=== PATIENT | female | born 1955 | race Caucasian/White ===

== ENCOUNTER 2017-09-11 15:19 | Inpatient (IN) ==
[2017-09-11] MEDS ORDERED: 0.9 % SODIUM CHLORIDE 1,000 ML IV ONE (15:37)
--- NOTE | 2017-09-11 15:57 | Emergency Department Note ---
SOB HPI - General Chief Complaint: Shortness of Breath/Dyspnea Stated Complaint: shortness of breath, fever, nausea, vomiting Time Seen by Provider: 09/11/17 15:30 Source: patient Mode of arrival: wheelchair Limitations: no limitations - History of Present Illness 62-year-old female presents with shortness of breath. She had her pain pump replaced on 08/29 and had been doing really well until last week. On Sunday she started to have nausea and vomiting and then today she has worsening shortness of breath. She has been coughing when she takes a deep breath. She denies any significant pain. She feels as though the pain pump is working. She has had 3 pain pumps in the past. This is a Dilaudid pain pump. She has a history of COPD and wears 2 L of oxygen at home. She also has a history of CHF which she has not had hospitalization for. She has not been able to take her medications because of her nausea/vomiting. No chest pain. She is not on any blood thinners. - Related Data Home Medications Medication Instructions Recorded Confirmed Estradiol [Estrace] 1 mg PO DAILY 08/23/17 09/11/17 Furosemide [Lasix] 20 mg PO DAILY 08/23/17 09/11/17 HYDROcodone/ACETAMINOPHEN 1 each PO PRN PRN 08/23/17 09/11/17 [Hydrocodon-Acetaminophn 10-325] Methylphenidate HCl [Quillichew ER] 30 mg PO DAILY 08/23/17 09/11/17 Omeprazole [PriLOSEC] 40 mg PO ACB 08/23/17 09/11/17 Potassium Citrate [Urocit-K] 10 meq PO DAILY 08/23/17 09/11/17 Sertraline [Zoloft] 25 mg PO DAILY 08/29/17 09/11/17 Allergies Allergy/AdvReac Type Severity Reaction Status Date / Time duloxetine [From Cymbalta] Allergy Intermediate Verified 09/11/17 15:23 codeine Allergy Mild Rash Verified 09/11/17 15:23 iodine AdvReac Severe Rash Verified 09/11/17 15:23 Review of Systems All systems ED: reviewed and negative except as stated. Past Medical History - Past Medical History Medical history: Reports: CHF, COPD, other (chronic pain) Psychiatric history: Reports: no psych history [employer] history: Reports: non-contributory Surgical history ED: Reports: other (intrathecal pain pump) Family history: Reports: non-contributory - Social History smoking status: Former smoker Physical Exam Limitations: no limitations General appearance: alert, other (tachypneic) Head: atraumatic Eye: Present: normal appearance. Absent: conjunctival injection Neck: Present: normal inspection, full ROM Chest: Present: normal inspection, symmetric chest wall rise Respiratory: Present: normal lung sounds bilaterally, other (no crackles or wheezes). Absent: wheezes Cardiovascular: Present: tachycardia, normal heart sounds Abdominal: Present: soft, normal bowel sounds, other (post op site looks good. No erythema or drainage). Absent: tenderness Extremities: Present: normal inspection, full ROM. Absent: pedal edema Neurological: Present: alert, oriented X3 Psychiatric: Present: normal affect, normal mood Skin: Present: warm, dry, intact Course Course Narrative: Given Zosyn, Rocephin, and Levaquin. The Rocephin was given after blood cultures were taken. The Zosyn and Levaquin are more tailored to aspiration pneumonia. Vital Signs Temperature 100.2 F H 09/11/17 15:20 Pulse Rate 121 H 09/11/17 15:20 Respiratory Rate 26 H 09/11/17 15:20 Blood Pressure 143/80 09/11/17 15:20 Pulse Oximetry (%) 86 L 09/11/17 15:20 Temperature 97.9 F 09/11/17 19:00 Pulse Rate 84 09/11/17 19:00 Respiratory Rate 16 09/11/17 19:00 Blood Pressure 131/80 09/11/17 19:00 Pulse Oximetry (%) 91 09/11/17 19:00 Shortness of Breath/Dyspnea - Lab Data Lab results reviewed: Yes I reviewed the patient's lab results. Result diagrams: 09/11/17 15:52 09/11/17 15:51 Lab Results 09/11/17 09/11/17 09/11/17 Range/Units 15:51 15:51 15:51 WBC (4.5-11.0) K/mcL RBC (4.00-5.20) M/mcL Hgb (12.0-15.0) g/dL Hct (36.0-48.0) % MCV (80.0-100.0) fL MCH (26.0-34.0) pg MCHC (31.0-36.0) g/dL RDW (11.5-14.5) % Plt Count (140-440) K/mcL MPV (7.4-10.4) fL Total Counted Seg Neutrophils % (38-78) % Band Neutrophils % (0-10) % Lymphocytes % (15-49) % Monocytes % (Manual) (1-12) % Platelet Estimate (NORMAL) RBC Morphology (NORMAL) VBG Lactic Acid 1.9 (0.5-2.2) mmol/L Sodium 134 (133-145) mmol/L Potassium 3.8 (3.3-5.1) mmol/L Chloride 91 L (96-108) mmol/L Carbon Dioxide 24 (22-30) mmol/L Anion Gap 19.0 H (8-16) BUN 7 L (8-23) mg/dl Creatinine 0.5 L (0.6-1.1) mg/dl GFR Calculation 102 Glucose 82 (70-105) mg/dL Calcium 8.7 (8.6-10.4) mg/dl Total Bilirubin 0.9 (0.0-1.0) mg/dL AST 49 H (0-37) U/l ALT 27 (0-40) U/l Alkaline Phosphatase 90 (39-117) U/L NT-Pro-B Natriuret Pep 368.0 H (0-125) pg/ml Total Protein 7.3 (5.9-8.4) gm/dL Albumin 3.1 L (3.2-5.2) gm/dL Globulin 4.2 H (2.2-3.7) gm/dL Albumin/Globulin Ratio 0.7 L (1.0-2.3) Urine Color Urine Appearance Urine pH (5.0-9.0) Ur Specific [place] (1.000-1.035) Urine Protein (NEG) mg/dL Urine Glucose (UA) (NEG) mg/dL Urine Ketones (NEG) mg/dL Urine Occult Blood (<0.03) mg/dL Urine Nitrate (NEG) Urine Bilirubin (NEG) mg/dL Urine Ictotest (NEG) Urine Urobilinogen (NEG) mg/dL Ur Leukocyte Esterase (NEG) /uL Urine RBC (0-1) /hpf Urine WBC (0-4) /hpf Ur Squamous Epith Cells (0-4) /hpf Ur Transition Epith Cell (0-2) /hpf Urine Bacteria (0) /hpf Urine Mucus (0) /hpf Ur Culture Indicated? 09/11/17 09/11/17 Range/Units 15:52 16:39 WBC 18.7 H (4.5-11.0) K/mcL RBC 5.30 H (4.00-5.20) M/mcL Hgb 16.2 H (12.0-15.0) g/dL Hct 49.3 H (36.0-48.0) % MCV 93.0 (80.0-100.0) fL MCH 30.6 (26.0-34.0) pg MCHC 32.9 (31.0-36.0) g/dL RDW 14.0 (11.5-14.5) % Plt Count 513 H (140-440) K/mcL MPV 7.5 (7.4-10.4) fL Total Counted 100 Seg Neutrophils % 93 H (38-78) % Band Neutrophils % 1 (0-10) % Lymphocytes % 3 L (15-49) % Monocytes % (Manual) 3 (1-12) % Platelet Estimate Increased (NORMAL) RBC Morphology Normal (NORMAL) VBG Lactic Acid (0.5-2.2) mmol/L Sodium (133-145) mmol/L Potassium (3.3-5.1) mmol/L Chloride (96-108) mmol/L Carbon Dioxide (22-30) mmol/L Anion Gap (8-16) BUN (8-23) mg/dl Creatinine (0.6-1.1) mg/dl GFR Calculation Glucose (70-105) mg/dL Calcium (8.6-10.4) mg/dl Total Bilirubin (0.0-1.0) mg/dL AST (0-37) U/l ALT (0-40) U/l Alkaline Phosphatase (39-117) U/L NT-Pro-B Natriuret Pep (0-125) pg/ml Total Protein (5.9-8.4) gm/dL Albumin (3.2-5.2) gm/dL Globulin (2.2-3.7) gm/dL Albumin/Globulin Ratio (1.0-2.3) Urine Color Yellow Urine Appearance Hazy Urine pH 6.0 (5.0-9.0) Ur Specific [place] 1.029 (1.000-1.035) Urine Protein 30 A (NEG) mg/dL Urine Glucose (UA) Negative (NEG) mg/dL Urine Ketones 80 A (NEG) mg/dL Urine Occult Blood 0.03 A (<0.03) mg/dL Urine Nitrate Neg (NEG) Urine Bilirubin Neg (NEG) mg/dL Urine Ictotest Neg (NEG) Urine Urobilinogen 4.0 A (NEG) mg/dL Ur Leukocyte Esterase Neg (NEG) /uL Urine RBC 4 H (0-1) /hpf Urine WBC 2 (0-4) /hpf Ur Squamous Epith Cells 12 H (0-4) /hpf Ur Transition Epith Cell < 1 (0-2) /hpf Urine Bacteria 0 (0) /hpf Urine Mucus Many A (0) /hpf Ur Culture Indicated? No - Radiology Data Radiology results reviewed: Yes I reviewed the patient's radiology results. Moderate mixed interstitial/alveolar infiltrates in the right upper and both lower lobes Disposition Pt seen by [employer]/PA only: Yes Clinical Impression: Aspiration pneumonia Disposition: Xfer As Inpt ([facility]) Condition: Fair
[2017-09-11] MEDS ORDERED: ACETAMINOPHEN 325 MG TABLET PO ONE (16:02)
--- NOTE | 2017-09-11 16:17 | XRay Report ---
CLINICAL INFORMATION: Shortness of breath COMPARISON: 04/08/2017 FINDINGS: Heart size, mediastinum and pulmonary vessels are normal. Lungs volumes are elevated suspicion for underlying COPD. There is moderate mixed interstitial/alveolar infiltrates in right upper and both lower lobes. No effusion IMPRESSION: Moderate mixed interstitial/alveolar infiltrates in the right upper and both lower lobes Interpreted and Authenticated by: Simon Rene 09/11/17
[2017-09-11] MEDS ORDERED: cefTRIAXone 1 GM VIAL IV ONE (16:21)
[2017-09-11 16:26] LABS: Mean Corpuscular HGB Conc 32.9 g/dL (31.0-36.0); Mean Corpuscular Hemoglobin 30.6 pg (26.0-34.0); Platelet Count 513 K/mcL (140-440)
[2017-09-11 16:51] LABS: ALT/SGPT 27 U/l (0-40); Albumin 3.1 gm/dL (3.2-5.2); Albumin/Globulin Ratio 0.7 (1.0-2.3); Alkaline Phosphatase 90 U/L (39-117); Blood Urea Nitrogen 7 mg/dl (8-23)
[2017-09-11] MEDS ORDERED: LEVOFLOXACIN 500 MG/100 ML BAG IV ONE (17:37)
[2017-09-11] MEDS ORDERED: PIPERACILLIN SODIUM/TAZOBACTAM 3.375 GM in DEXTROSE 5% IN WATER 50 ML IV ONE (17:37)
[2017-09-11 17:48] LABS: Appearance,Urine HAZY; Bacteria,Urine 0 /hpf (0); Bilirubin,Urine NEG (NEG); Color,Urine YELLOW; Glucose,Urine (UA) NEGATIVE (NEG); Ictotest,Urine NEG (NEG); Leukocyte Esterase,Urine NEG /uL (NEG); Mucus,Urine MANY /hpf (0); Protein,Urine 30 mg/dL (NEG); Specific Gravity,Urine 1.029 (1.000-1.035); Urine Blood 0.03 mg/dL (<0.03); Urine RBC 4 /hpf (0-1); Urine Squamous Epithelial Cell 12 /hpf (0-4); Urine Transitional Epi Cells < 1 /hpf (0-2); Urine WBC 2 /hpf (0-4)
[2017-09-11 18:01] LABS: Band Neutrophils % 1 % (0-10); Lymphocytes % 3 % (15-49); Monocytes % (Manual) 3 % (1-12); Platelet Estimate INCREASED (NORMAL); RBC Morphology NORMAL (NORMAL); Segmented Neutrophils % 93 % (38-78)
[2017-09-11] MEDS ORDERED: ACETAMINOPHEN 325 MG TABLET PO PRN (18:32)
[2017-09-11] MEDS ORDERED: ONDANSETRON 4 MG/2 ML VIAL IV PRN (18:32)
[2017-09-11] MEDS ORDERED: ACETAMINOPHEN 1,000 MG/100 ML BOTTLE IV PRN (18:32)
[2017-09-11] MEDS ORDERED: POTASSIUM CHLORIDE 20 MEQ PACKET PO PRN (18:32)
[2017-09-11] MEDS ORDERED: MAGNESIUM SULFATE 2 GM/50 ML BAG IV PRN (18:32)
[2017-09-11] MEDS ORDERED: IPRATROPIUM/ALBUTEROL 3 ML AMPUL.NEB NEB PRN (18:32)
[2017-09-11] MEDS: LEVOFLOXACIN 750 MG/150 ML BAG IV SCH (18:37)
[2017-09-11] MEDS: PIPERACILLIN SODIUM/TAZOBACTAM 3.375 GM in DEXTROSE 5% IN WATER 50 ML IV SCH (19:56)
[2017-09-11] MEDS: BUDESONIDE 0.5 MG/2 ML AMPUL.NEB NEB SCH (20:59)
[2017-09-11] MEDS ORDERED: SENNOSIDES/DOCUSATE SODIUM 1 TAB TABLET PO SCH (21:00)
[2017-09-11] MEDS ORDERED: 0.9 % SODIUM CHLORIDE 1,000 ML IV SCH (21:30)
--- NOTE | 2017-09-11 21:39 | Internal Med History&Physical ---
Medical - H&P: [facility] Patient information: Note initiated : 09/11/17 at 9:36 pm Service Date, if different from initiated Date: [] Patient: Zari Marroquin a 62 y/o F admitted on 09/11/17 for shortness of breath, fever, nausea, vomiting. Chief Complaint: [] Chief complaint: shortness of breath History of present illness: Ms. Marroquin is a 62 year old F with a history of oxygen dependent COPD who was until recently an active smoker and quit smoking May. Patient has been living alone independently however the last 3 days patient has gotten progressively short of breath with increasing cough and sputum production. Patient also complains of associated fever but denies chest pain or weight loss. She denies sick contacts. Denies changes in medications. With worsening symptoms along with orthopnea she presents to the ER. Initial workup was significant for multifocal pneumonia on chest imaging along with white count 19,000.hospitalist service consulted At the time of evaluation patient is alert and oriented. She is moderately short of breath. On 3 L oxygen. Was able to endorse history as above. She denies shaking chills and drenching sweats, diarrhea or rash photophobia and neck stiffness. She denies arthralgia myalgia. She recently had her pain pump changed. gen were removed yesterday Review of systems A 10 point review of system was performed and is negative except for ones discussed above Medical - H&P: PMH Medical history: Oxygen dependent COPD GERD degenerative joint disease History of congestive heart failure Anxiety disorder Pertinent family history: Noncontributory Social history: or 50 pack history smoking quit in May 2017 Drug use: none Alcohol use: none Medical - H&P: Meds Home Medications Medication Instructions Recorded Confirmed Type Estradiol [Estrace] 1 mg PO DAILY 08/23/17 09/11/17 History Furosemide [Lasix] 20 mg PO DAILY 08/23/17 09/11/17 History HYDROcodone/ACETAMINOPHEN 1 each PO PRN PRN 08/23/17 09/11/17 History [Hydrocodon-Acetaminophn 10-325] Methylphenidate HCl [Quillichew ER] 30 mg PO DAILY 08/23/17 09/11/17 History Omeprazole [PriLOSEC] 40 mg PO ACB 08/23/17 09/11/17 History Potassium Citrate [Urocit-K] 10 meq PO DAILY 08/23/17 09/11/17 History Sertraline [Zoloft] 25 mg PO DAILY 08/29/17 09/11/17 History Allergies Allergy/AdvReac Type Severity Reaction Status Date / Time duloxetine [From Cymbalta] Allergy Intermediate Verified 09/11/17 15:23 codeine Allergy Mild Rash Verified 09/11/17 15:23 iodine AdvReac Mild Rash Verified 09/12/17 11:28 Medical - H&P: Exam - Constitutional Vitals: Temp Pulse Resp BP Pulse Ox 97.9 F 98 H 16 131/80 93 09/11/17 19:00 09/11/17 21:13 09/11/17 21:13 09/11/17 19:00 09/11/17 21:19 General appearance: no acute distress Exam: short of breath minimally anxious Pupils symmetric oral cavity dry No ear discharge Head normocephalic Neck no lymphadenopathy S1 and S2 regular rhythm. ESM grade 1 chest diminished breath sounds bases/crackles/rhonchiexpiratory abdomen soft nontender lower extremity no cyanosis clubbing skin no suspicious lesion Psych alert cooperative Neuro nonfocal Medical - H&P: Reslt - Labs CBC & Chem 7: 09/12/17 04:38 09/12/17 04:38 Labs: Short CBC 09/11/17 Range/Units 15:52 WBC 18.7 H (4.5-11.0) K/mcL Hgb 16.2 H (12.0-15.0) g/dL Hct 49.3 H (36.0-48.0) % Plt Count 513 H (140-440) K/mcL BMP 09/11/17 15:51 Sodium 134 Potassium 3.8 Chloride 91 L Carbon Dioxide 24 BUN 7 L Creatinine 0.5 L Glucose 82 Calcium 8.7 Liver Function 09/11/17 Range/Units 15:51 Total Bilirubin 0.9 (0.0-1.0) mg/dL AST 49 H (0-37) U/l ALT 27 (0-40) U/l Alkaline Phosphatase 90 (39-117) U/L Albumin 3.1 L (3.2-5.2) gm/dL Urine 09/11/17 Range/Units 16:39 Urine Color Yellow Urine Appearance Hazy Urine pH 6.0 (5.0-9.0) Ur Specific [place] 1.029 (1.000-1.035) Urine Protein 30 A (NEG) mg/dL Urine Glucose (UA) Negative (NEG) mg/dL Medical - H&P: A/P (1) Aspiration pneumonia Current visit: Yes Status: Acute * multifocal pneumonia likely aspiration. Continue aspiration precautions/ST eval/dysphagia diet/antibiotic coverage for gram-negative/anaerobes. * Hypoxia-continue supplement oxygen * COPD exacerbation secondary to pneumonia-Continue bronchodilators/immune steroids/oxygen * Anxiety disorder continue sertraline * GERD continue PPI * chronic pain on pain pump * Degenerative joint disease continue acetaminophen/hydrocodone * Full code * Prophylaxis heparin Plan * antibiotic coverage * pre-existing medical condition management as above * Inpatient admitted Medical - H&P: Qual - VTE Deep Vein Thrombosis/Pulmonary Embolism Present on Admission: No
[2017-09-11] MEDS: DOCUSATE SODIUM 100 MG CAPSULE PO SCH (21:46)
[2017-09-11] MEDS: HEPARIN 5,000 UNIT/ML VIAL SQ SCH (21:47)
[2017-09-11] MEDS: 0.9 % SODIUM CHLORIDE 10 ML SYRINGE IV SCH (22:20)
[2017-09-12] MEDS: PIPERACILLIN SODIUM/TAZOBACTAM 3.375 GM in DEXTROSE 5% IN WATER 50 ML IV SCH ×5 (00:21→23:38)
[2017-09-12] MEDS: HYDROcodone/APAP 10/325MG TABLET PO PRN ×4 (00:23→19:45)
[2017-09-12 06:27] LABS: Mean Cell Volume 94.1 fL (80.0-100.0); Mean Corpuscular HGB Conc 32.9 g/dL (31.0-36.0); Platelet Count 447 K/mcL (140-440); RBC 4.56 M/mcL (4.00-5.20); Red Cell Distribution Width 14.2 % (11.5-14.5)
[2017-09-12] MEDS: 0.9 % SODIUM CHLORIDE 10 ML SYRINGE IV SCH ×6 (06:45→20:59)
[2017-09-12 07:02] LABS: ALT/SGPT 20 U/l (0-40); Albumin 2.5 gm/dL (3.2-5.2); Albumin/Globulin Ratio 0.8 (1.0-2.3); Alkaline Phosphatase 78 U/L (39-117); Bilirubin,Direct 0.3 mg/dL (0.0-0.3); Blood Urea Nitrogen 6 mg/dl (8-23); Gamma Glutamyl Transpeptidase 42 U/L (5-36); Uric Acid 2.1 mg/dL (2.5-8.0)
[2017-09-12] MEDS ORDERED: OMEPRAZOLE 20 MG CAPSULE PO SCH (07:30)
[2017-09-12] MEDS ORDERED: POTASSIUM CITRATE 10 MEQ TAB.XL.24H PO SCH (08:00)
[2017-09-12] MEDS: DOCUSATE SODIUM 100 MG CAPSULE PO SCH ×2 (08:15→20:58)
[2017-09-12] MEDS: HEPARIN 5,000 UNIT/ML VIAL SQ SCH ×2 (08:17→20:58)
[2017-09-12 08:37] LABS: Band Neutrophils % 2 % (0-10); Eosinophils % (Manual) 1 % (0-7); Lymphocytes % 17 % (15-49); Monocytes % (Manual) 7 % (1-12); Platelet Estimate INCREASED (NORMAL); RBC Morphology NORMAL (NORMAL); Segmented Neutrophils % 73 % (38-78)
[2017-09-12] MEDS ORDERED: METHYLPHENIDATE HCL 30 MG PO SCH (09:00)
[2017-09-12] MEDS ORDERED: FUROSEMIDE 20 MG TABLET PO SCH (09:00)
[2017-09-12] MEDS ORDERED: SERTRALINE 50 MG TABLET PO SCH (09:00)
[2017-09-12] MEDS: LEVOFLOXACIN 750 MG/150 ML BAG IV SCH (10:01)
--- NOTE | 2017-09-12 10:10 | Internal Med Progress Note ---
Medical - PN: Subj Patient information: Note initiated : 09/12/17 at 10:07 am Service Date, if different from initiated Date: [] Patient: Zari Marroquin a 62 y/o F admitted on 09/11/17 for Shortness of Breath Fever,Nausea, Aspiration Pneum. Chief Complaint: [] Interval history: Ms. Marroquin is a 62 year old F with a history of oxygen dependent COPD who until recently was an active smoker and quit smoking May. Patient has been living alone independently however the last 3 days patient has gotten progressively short of breath with increasing cough and sputum production. Patient also complains of associated fever but denies chest pain or weight loss. She denies sick contacts. Denies changes in medications. With worsening symptoms along with orthopnea she presents to the ER. Initial workup was significant for multifocal pneumonia on chest imaging along with white count 19,000.hospitalist service consulted At the time of evaluation patient is alert and oriented. She is moderately short of breath. On 3 L oxygen. Was able to endorse history as above. She denies shaking chills and drenching sweats, diarrhea or rash photophobia and neck stiffness. She denies arthralgia myalgia. She recently had her pain pump changed. gen were removed yesterday 09/12- patient patient's condition has significantly deteriorated over the last 12 hours. currently on 6 L oxygen mask. Diaphoretic. Labored breathing, tachypnea. Stat ABGs 7.53/33/60 on 5 L oxygen. Lactic acid 1.1. Chest CT pending. white count down from 18.7->16.6. Echocardiogram pending. strep pneumo and mycoplasma negative. On broad antibiotic coverage. Transfer to ICU in light of progressive hypoxic respiratory failure with a large AA gradient and a V/Q mismatch. start positive pressure ventilation.Further treatment will depend on CT findings. Sister at bedside. - Constitutional Vitals: Vital Signs Temp Pulse Resp BP Pulse Ox 98.8 F 84 18 105/62 91 09/12/17 08:00 09/12/17 08:00 09/12/17 08:00 09/12/17 08:00 09/12/17 08:00 Period Temp Pulse Resp BP Sys/Gomes Pulse Ox Last 24 Hr 97.9 F-100.2 F 84-121 13-26 105-143/62-87 86-94 Intake and Output 09/11/17 09/12/17 09/12/17 21:59 05:59 13:59 Intake Total 567 / 567 260 / 260 170 / 170 Output Total 250 / 250 Balance 567 / 567 10 / 10 170 / 170 Weight 136 lb 8 oz Intake & Output: Intake & Output 09/11/17 09/12/17 09/12/17 21:59 05:59 13:59 Intake Total 567 / 567 260 / 260 170 / 170 Output Total 250 / 250 Balance 567 / 567 10 / 10 170 / 170 Weight 136 lb 8 oz Intake: IV 567 / 567 50 / 50 50 / 50 Sodium Chloride 0.9% 1,000 ml @ 442 / 442 Wide Open IV BOLUS ONE Rx#: [id number] Zosyn 3.375 gm In Dextrose 5% 50 / 50 50 / 50 50 / 50 in Water 50 ml @ 100 mls/hr IV Q6H DARIANA Rx#:[id number] Oral 210 / 210 120 / 120 Output: Void Amount 250 / 250 General appearance: moderate distress Exam: anxious diaphoretic and short of breath Labored breathing Tachypneic \nondistended abdomen no lymphedema Medical - PN: Obj Da - Labs CBC & Chem 7: 09/12/17 04:38 09/12/17 04:38 Labs: Abnormal Lab Results 09/12/17 09/12/17 09/11/17 04:38 04:38 18:30 WBC 16.6 H RBC Hgb Hct Plt Count 447 H Seg Neutrophils % Lymphocytes % ESR Chloride Anion Gap BUN 6 L Creatinine 0.5 L Uric Acid 2.1 L Calcium 8.2 L GGT 42 H AST Lactate Dehydrogenase 378 H C-Reactive Protein 4.7 H NT-Pro-B Natriuret Pep Total Protein 5.8 L Albumin 2.5 L Globulin Albumin/Globulin Ratio 0.8 L Urine Protein Urine Ketones Urine Occult Blood Urine Urobilinogen Urine RBC Ur Squamous Epith Cells Urine Mucus 09/11/17 09/11/17 09/11/17 18:30 16:39 15:52 WBC 18.7 H RBC 5.30 H Hgb 16.2 H Hct 49.3 H Plt Count 513 H Seg Neutrophils % 93 H Lymphocytes % 3 L ESR 41 H Chloride Anion Gap BUN Creatinine Uric Acid Calcium GGT AST Lactate Dehydrogenase C-Reactive Protein NT-Pro-B Natriuret Pep Total Protein Albumin Globulin Albumin/Globulin Ratio Urine Protein 30 A Urine Ketones 80 A Urine Occult Blood 0.03 A Urine Urobilinogen 4.0 A Urine RBC 4 H Ur Squamous Epith Cells 12 H Urine Mucus Many A 09/11/17 09/11/17 15:51 15:51 WBC RBC Hgb Hct Plt Count Seg Neutrophils % Lymphocytes % ESR Chloride 91 L Anion Gap 19.0 H BUN 7 L Creatinine 0.5 L Uric Acid Calcium GGT AST 49 H Lactate Dehydrogenase C-Reactive Protein NT-Pro-B Natriuret Pep 368.0 H Total Protein Albumin 3.1 L Globulin 4.2 H Albumin/Globulin Ratio 0.7 L Urine Protein Urine Ketones Urine Occult Blood Urine Urobilinogen Urine RBC Ur Squamous Epith Cells Urine Mucus Meds: Medications Acetaminophen (Tylenol) 650 mg PO Q4-6HP PRN PRN Reason: PAIN/FEVER > 101 Hydrocodone Bitart/Acetaminophen ([place] 10/325mg) 1 tab PO Q4-6HP PRN PRN Reason: Pain Last Admin: 09/12/17 08:23 Dose: 1 tab Albuterol/Ipratropium (Duoneb) 3 ml NEB Q4HP PRN PRN Reason: Shortness Of Breath Last Admin: 09/11/17 20:59 Dose: 3 ml Budesonide (Pulmicort) 0.5 mg NEB Q12 [facility] Last Admin: 09/11/17 20:59 Dose: 0.5 mg Docusate Sodium (Colace) 100 mg PO BID [facility] Last Admin: 09/12/17 08:15 Dose: 100 mg Furosemide (Lasix) 20 mg PO DAILY [facility] Last Admin: 09/12/17 08:15 Dose: 20 mg Heparin Sodium (Porcine) (Heparin) 5,000 unit SQ Q12 [facility] Last Admin: 09/12/17 08:17 Dose: 5,000 unit Levofloxacin (Levaquin) 750 mg in 150 mls @ 100 mls/hr IV Q24H [facility] Last Admin: 09/12/17 10:01 Dose: 100 mls/hr Magnesium Sulfate (Magnesium Sulfate) 2 gm in 50 mls @ 50 mls/hr IV UD PRN PRN Reason: MG = or < 1.7 Acetaminophen (Ofirmev) 1,000 mg in 100 mls @ 200 mls/hr IV Q6HP PRN PRN Reason: PAIN/FEVER > 101 Piperacillin Sod/Tazobactam (Sod 3.375 gm/ Dextrose) 50 mls @ 100 mls/hr IV Q6H [facility] Last Infusion: 09/12/17 06:35 Dose: Infused Sodium Chloride (Sodium Chloride 0.9%) 1,000 mls @ 50 mls/hr IV .Q20H [facility] Last Admin: 09/11/17 21:43 Dose: 50 mls/hr Omeprazole (Prilosec) 40 mg PO ACB [facility] Last Admin: 09/12/17 08:15 Dose: 40 mg Ondansetron HCl (Zofran) 4 mg IV Q4-6HP PRN PRN Reason: Nausea And Vomiting Methylphenidate Hcl [Quillichew Er] 30 Mg 1 dose PO DAILY [facility] Last Admin: 09/12/17 08:17 Dose: Not Given Potassium Chloride (Klor-Con) 40 meq PO DAILYP PRN PRN Reason: K+ < 3.5 Potassium Citrate (Potassium Citrate) 10 meq PO QAMCC [facility] Last Admin: 09/12/17 08:15 Dose: 10 meq Senna/Docusate Sodium (Senna Plus Tablet) 1 tab PO HS [facility] Last Admin: 09/11/17 21:46 Dose: 1 tab Sertraline HCl (Zoloft) 25 mg PO DAILY [facility] Last Admin: 09/12/17 08:15 Dose: 25 mg Sodium Chloride (Saline Flush) 10 ml IV Q8 [facility] Last Admin: 09/12/17 08:18 Dose: Not Given Medical - PN: A/P - Time Spent With Patient Total time spent is greater than 50% in coordination of care (as documented) at patient's floor/unit and/or counseling patient: Greater than 35 minutes (Critical care time) (1) Aspiration pneumonia Status: Acute Assessment and plan: * Acute hypoxic respiratory failure/ ARDS-CT chest pending. Echocardiogram pending. Continue broad antibiotic coverage. Multifocal aspiration pneumonia on initial imaging. ABG 7.53/33/60 on 5 L oxygen. Initiate positive pressure ventilation high flow oxygen. Transfer to ICU. * Multifocal pneumonia likely aspiration. Ccontinue aspiration precautions/ antibody coverage * Sepsis-improving leukocytosis. On antibiotic coverage. Negative cultures to date * COPD exacerbation secondary to pneumonia-Continue bronchodilators/immune steroids/oxygen * Anxiety disorder continue sertraline * GERD continue PPI * chronic pain on pain pump * Degenerative joint disease continue acetaminophen/hydrocodone/pain pump * Full code * Prophylaxis heparin Plan * CT chest/echocardiogram * Transfer to ICU * Close hemodynamic monitoring * pre-existing medical condition management as above Current Visit: Yes Medical - PN: Qual - VTE Deep Vein Thrombosis/Pulmonary Embolism Present on Admission: No
[2017-09-12] MEDS: BUDESONIDE 0.5 MG/2 ML AMPUL.NEB NEB SCH ×2 (10:15→21:17)
[2017-09-12] MEDS ORDERED: IPRATROPIUM/ALBUTEROL 3 ML AMPUL.NEB NEB PRN (11:12)
[2017-09-12] MEDS ORDERED: ACETAMINOPHEN 325 MG TABLET PO PRN (11:12)
[2017-09-12] MEDS ORDERED: ACETAMINOPHEN 1,000 MG/100 ML BOTTLE IV PRN (11:12)
[2017-09-12] MEDS ORDERED: ONDANSETRON 4 MG/2 ML VIAL IV PRN (11:12)
[2017-09-12] MEDS ORDERED: MAGNESIUM SULFATE 2 GM/50 ML BAG IV PRN (11:12)
--- NOTE | 2017-09-12 12:33 | Cat Scan Report ---
CLINICAL INFORMATION: Hypoxia COMPARISON: Chest x-ray from 04/08/2017 and 09/11/2017. TECHNIQUE: 0.625 mm axial slices were obtained from the lung apices through the bases without intravenous contrast. 2.5 mm Sagittal, coronal and axial reformatted images were processed and reviewed at bone, lung and soft tissue windows. 7 mm axial MIP images were also reconstructed to optimize pulmonary nodule detection.The exam was performed using radiation dose optimization techniques including, but not limited to, automated exposure control, adjustment of the mA and/or kV according to patient size and use of iterative reconstruction technique. FINDINGS: Pulmonary parenchymal windows show extensive groundglass infiltrates diffusely throughout the right lung and, to lesser extent, throughout the left lung with peripheral sparing. There is also mild thickening of the interlobular septi - particularly in the upper lobe regions. In addition, multiple small nodules (10 mm or less) are widely scattered throughout both lungs. There are no effusions. Mediastinal windows show the noncontrasted thoracic aorta to be normal in contour and caliber. The central pulmonary arteries are large with main pulmonary artery artery diameter 3.2 cm. There are a few lymph nodes in the pericarinal and lower right peritracheal region which are borderline enlarged - 11 mm. Esophagus is normal. The heart is normal in size and configuration. There is minor calcification the proximal coronary arteries. Bones and soft tissues of the chest wall are normal. IMPRESSION: 1. Diffuse alveolar (groundglass infiltrates) throughout both lungs with peripheral sparing and thickening of the interlobular septa. In addition, there are scattered small nodules less than 10 mm throughout both lungs. In the acute setting, diffuse alveolar infiltrates can indicate ARDS, opportunistic infection (PCP, fungus, mycoplasma, viral ) pulmonary hemorrhage, hypersensitivity pneumonitis, acute eosinophilic pneumonia or drug toxicity. Multiple small nodules may indicate either granulomas or metastases from an unknown primary carcinoma Interpreted and Authenticated by: Simon Rene 09/12/17
[2017-09-12] MEDS: 0.9 % SODIUM CHLORIDE 1,000 ML IV SCH (13:11)
[2017-09-12] MEDS: POTASSIUM CHLORIDE 20 MEQ PACKET PO PRN (14:44)
[2017-09-12] MEDS: FUROSEMIDE 20 MG/2 ML VIAL IV SCH (16:05)
[2017-09-12] MEDS: SENNOSIDES/DOCUSATE SODIUM 1 TAB TABLET PO SCH (20:58)
[2017-09-13] MEDS: HYDROcodone/APAP 10/325MG TABLET PO PRN ×4 (00:27→22:16)
[2017-09-13 05:31] LABS: Mean Cell Volume 94.6 fL (80.0-100.0); Mean Corpuscular HGB Conc 33.1 g/dL (31.0-36.0); Mean Corpuscular Hemoglobin 31.3 pg (26.0-34.0); Platelet Count 459 K/mcL (140-440); RBC 4.54 M/mcL (4.00-5.20)
[2017-09-13 05:54] LABS: ALT/SGPT 18 U/l (0-40); Albumin 2.6 gm/dL (3.2-5.2); Albumin/Globulin Ratio 0.7 (1.0-2.3); Alkaline Phosphatase 72 U/L (39-117); Bilirubin,Direct 0.3 mg/dL (0.0-0.3); Blood Urea Nitrogen 7 mg/dl (8-23); Gamma Glutamyl Transpeptidase 42 U/L (5-36); Uric Acid 1.7 mg/dL (2.5-8.0)
[2017-09-13] MEDS: PIPERACILLIN SODIUM/TAZOBACTAM 3.375 GM in DEXTROSE 5% IN WATER 50 ML IV SCH ×4 (06:15→23:34)
[2017-09-13] MEDS: 0.9 % SODIUM CHLORIDE 10 ML SYRINGE IV SCH ×3 (06:15→23:37)
[2017-09-13] MEDS: OMEPRAZOLE 20 MG CAPSULE PO SCH (07:01)
[2017-09-13 08:11] LABS: Eosinophils % (Manual) 1 % (0-7); Lymphocytes % 14 % (15-49); Monocytes % (Manual) 3 % (1-12); Platelet Estimate INCREASED (NORMAL); RBC Morphology NORMAL (NORMAL); Segmented Neutrophils % 82 % (38-78)
[2017-09-13] MEDS ORDERED: LEVOFLOXACIN 750 MG/150 ML BAG IV SCH (09:00)
[2017-09-13] MEDS: SERTRALINE 50 MG TABLET PO SCH (09:27)
[2017-09-13] MEDS: DOCUSATE SODIUM 100 MG CAPSULE PO SCH ×2 (09:27→20:56)
[2017-09-13] MEDS: FUROSEMIDE 20 MG TABLET PO SCH ×2 (09:27→10:33)
[2017-09-13] MEDS: BUDESONIDE 0.5 MG/2 ML AMPUL.NEB NEB SCH ×2 (09:28→21:15)
[2017-09-13] MEDS: POTASSIUM CITRATE 10 MEQ TAB.XL.24H PO SCH (09:28)
[2017-09-13] MEDS: HEPARIN 5,000 UNIT/ML VIAL SQ SCH ×2 (09:29→20:56)
[2017-09-13] MEDS: METHYLPHENIDATE HCL 30 MG PO SCH (09:30)
[2017-09-13] MEDS: FUROSEMIDE 20 MG/2 ML VIAL IV SCH ×2 (09:35→15:49)
[2017-09-13] MEDS: 0.9 % SODIUM CHLORIDE 1,000 ML IV SCH (09:45)
--- NOTE | 2017-09-13 16:16 | Internal Med Progress Note ---
Medical - PN: Subj Patient information: Note initiated : 09/13/17 at 4:10 pm Service Date, if different from initiated Date: [] Patient: Zari Marroquin a 62 y/o F admitted on 09/11/17 for Shortness of Breath Fever,Nausea, Aspiration Pneum. Chief Complaint: [] Interval history: Ms. Marroquin is a 62 year old F with a history of oxygen dependent COPD who until recently was an active smoker and quit smoking May. Patient has been living alone independently however the last 3 days patient has gotten progressively short of breath with increasing cough and sputum production. Patient also complains of associated fever but denies chest pain or weight loss. She denies sick contacts. Denies changes in medications. With worsening symptoms along with orthopnea she presents to the ER. Initial workup was significant for multifocal pneumonia on chest imaging along with white count 19,000.hospitalist service consulted At the time of evaluation patient is alert and oriented. She is moderately short of breath. On 3 L oxygen. Was able to endorse history as above. She denies shaking chills and drenching sweats, diarrhea or rash photophobia and neck stiffness. She denies arthralgia myalgia. She recently had her pain pump changed. gen were removed yesterday 09/12- patient patient's condition has significantly deteriorated over the last 12 hours. currently on 6 L oxygen mask. Diaphoretic. Labored breathing, tachypnea. Stat ABGs 7.53/33/60 on 5 L oxygen. Lactic acid 1.1. Chest CT pending. white count down from 18.7->16.6. Echocardiogram pending. strep pneumo and mycoplasma negative. On broad antibiotic coverage. Transfer to ICU in light of progressive hypoxic respiratory failure with a large AA gradient and a V/Q mismatch. start positive pressure ventilation.Further treatment will depend on CT findings. Sister at bedside. 09/13- patient doing remarkably better on noninvasive ventilation. Overnight slept well on BiPAP. White count down from 16.6-16.1. improving respiratory status.on 40% FiO2 BiPAP .B D glucan pending. secondary to worsening noticed start sulfamethoxazole. fungal cultures pending. Question bacterial pneumonia in light of normal pro calcitonin. continue conservative management/empiric antibiotic coverage. - Constitutional Vitals: Vital Signs Temp Pulse Resp BP Pulse Ox 97.8 F 74 20 100/58 88 L 09/13/17 12:00 09/13/17 13:22 09/13/17 13:22 09/13/17 12:00 09/13/17 13:22 Period Temp Pulse Resp BP Sys/Gomes Pulse Ox Last 24 Hr 97.1 F-99.2 F 66-153 16-24 97-124/52-72 88-96 Intake and Output 09/13/17 09/13/17 09/13/17 05:59 13:59 21:59 Intake Total 230 / 230 650 / 650 Output Total 100 / 100 890 / 890 Balance 130 / 130 -240 / -240 Intake & Output: Intake & Output 09/13/17 09/13/17 09/13/17 05:59 13:59 21:59 Intake Total 230 / 230 650 / 650 Output Total 100 / 100 890 / 890 Balance 130 / 130 -240 / -240 Intake: IV 50 / 50 250 / 250 Zosyn 3.375 gm In Dextrose 5% 50 / 50 100 / 100 in Water 50 ml @ 100 mls/hr IV Q6H [facility] Rx#:[id number] Oral 180 / 180 400 / 400 Output: Void Amount 100 / 100 890 / 890 Other: Meal Breakfast Percent of Meal Consumed 15% Feeding Ability Independent General appearance: no acute distress Exam: short of breath On BiPAP Labored breathing Nondistended abdomen No anxiety Medical - PN: Obj Da - Labs CBC & Chem 7: 09/13/17 03:29 09/13/17 03:29 Labs: Abnormal Lab Results 09/13/17 09/13/17 09/12/17 03:29 03:29 04:38 WBC 16.1 H RBC Hgb Hct Plt Count 459 H Seg Neutrophils % 82 H Lymphocytes % 14 L ESR Chloride Anion Gap BUN 7 L 6 L Creatinine 0.5 L 0.5 L Uric Acid 1.7 L 2.1 L Calcium 8.2 L 8.2 L GGT 42 H 42 H AST Lactate Dehydrogenase 432 H 378 H C-Reactive Protein NT-Pro-B Natriuret Pep Total Protein 5.8 L Albumin 2.6 L 2.5 L Globulin Albumin/Globulin Ratio 0.7 L 0.8 L Urine Protein Urine Ketones Urine Occult Blood Urine Urobilinogen Urine RBC Ur Squamous Epith Cells Urine Mucus 04/09/11/17 09/11/17 04:38 18:30 18:30 WBC 16.6 H RBC Hgb Hct Plt Count 447 H Seg Neutrophils % Lymphocytes % ESR 41 H Chloride Anion Gap BUN Creatinine Uric Acid Calcium GGT AST Lactate Dehydrogenase C-Reactive Protein 4.7 H NT-Pro-B Natriuret Pep Total Protein Albumin Globulin Albumin/Globulin Ratio Urine Protein Urine Ketones Urine Occult Blood Urine Urobilinogen Urine RBC Ur Squamous Epith Cells Urine Mucus 09/11/17 09/11/17 09/11/17 16:39 15:52 15:51 WBC 18.7 H RBC 5.30 H Hgb 16.2 H Hct 49.3 H Plt Count 513 H Seg Neutrophils % 93 H Lymphocytes % 3 L ESR Chloride Anion Gap BUN Creatinine Uric Acid Calcium GGT AST Lactate Dehydrogenase C-Reactive Protein NT-Pro-B Natriuret Pep 368.0 H Total Protein Albumin Globulin Albumin/Globulin Ratio Urine Protein 30 A Urine Ketones 80 A Urine Occult Blood 0.03 A Urine Urobilinogen 4.0 A Urine RBC 4 H Ur Squamous Epith Cells 12 H Urine Mucus Many A 09/11/17 15:51 WBC RBC Hgb Hct Plt Count Seg Neutrophils % Lymphocytes % ESR Chloride 91 L Anion Gap 19.0 H BUN 7 L Creatinine 0.5 L Uric Acid Calcium GGT AST 49 H Lactate Dehydrogenase C-Reactive Protein NT-Pro-B Natriuret Pep Total Protein Albumin 3.1 L Globulin 4.2 H Albumin/Globulin Ratio 0.7 L Urine Protein Urine Ketones Urine Occult Blood Urine Urobilinogen Urine RBC Ur Squamous Epith Cells Urine Mucus Meds: Medications Acetaminophen (Tylenol) 650 mg PO Q4-6HP PRN PRN Reason: PAIN/FEVER > 101 Hydrocodone Bitart/Acetaminophen ([place] 10/325mg) 1 tab PO Q4-6HP PRN PRN Reason: Pain Last Admin: 09/13/17 07:01 Dose: 1 tab Albuterol/Ipratropium (Duoneb) 3 ml NEB Q4HP PRN PRN Reason: Shortness Of Breath Last Admin: 09/12/17 21:17 Dose: 3 ml Budesonide (Pulmicort) 0.5 mg NEB Q12 [facility] Last Admin: 09/13/17 09:28 Dose: 0.5 mg Docusate Sodium (Colace) 100 mg PO BID [facility] Last Admin: 09/13/17 09:27 Dose: 100 mg Furosemide (Lasix) 20 mg IV BIDD [facility] Last Admin: 09/13/17 15:49 Dose: 20 mg Heparin Sodium (Porcine) (Heparin) 5,000 unit SQ Q12 [facility] Last Admin: 09/13/17 09:29 Dose: 5,000 unit Levofloxacin (Levaquin) 750 mg in 150 mls @ 100 mls/hr IV Q24H [facility] Last Infusion: 09/13/17 11:26 Dose: Infused Magnesium Sulfate (Magnesium Sulfate) 2 gm in 50 mls @ 50 mls/hr IV UD PRN PRN Reason: MG = or < 1.7 Sodium Chloride (Sodium Chloride 0.9%) 1,000 mls @ 50 mls/hr IV .Q20H [facility] Last Admin: 09/13/17 09:45 Dose: Not Given Acetaminophen (Ofirmev) 1,000 mg in 100 mls @ 200 mls/hr IV Q6HP PRN PRN Reason: PAIN/FEVER > 101 Piperacillin Sod/Tazobactam (Sod 3.375 gm/ Dextrose) 50 mls @ 100 mls/hr IV Q6H [facility] Last Infusion: 09/13/17 12:20 Dose: Infused Omeprazole (Prilosec) 40 mg PO ACB [facility] Last Admin: 09/13/17 07:01 Dose: 40 mg Ondansetron HCl (Zofran) 4 mg IV Q4-6HP PRN PRN Reason: Nausea And Vomiting Methylphenidate Hcl [Quillichew Er] 30 Mg Tab 1 dose PO DAILY [facility] Last Admin: 09/13/17 09:30 Dose: Not Given Potassium Chloride (Klor-Con) 40 meq PO DAILYP PRN PRN Reason: K+ < 3.5 Last Admin: 09/12/17 14:44 Dose: 40 meq Potassium Citrate (Potassium Citrate) 10 meq PO QAMCC [facility] Last Admin: 09/13/17 09:28 Dose: 10 meq Senna/Docusate Sodium (Senna Plus Tablet) 1 tab PO HS [facility] Last Admin: 09/12/17 20:58 Dose: 1 tab Sertraline HCl (Zoloft) 25 mg PO DAILY [facility] Last Admin: 09/13/17 09:27 Dose: 25 mg Sodium Chloride (Saline Flush) 10 ml IV Q8 [facility] Last Admin: 09/13/17 15:49 Dose: 10 ml Medical - PN: A/P - Time Spent With Patient Total time spent is greater than 50% in coordination of care (as documented) at patient's floor/unit and/or counseling patient: Greater than 35 minutes (ccritical care time) (1) Aspiration pneumonia Status: Acute Assessment and plan: * Acute hypoxic respiratory failure-CT chest bilateral infiltrates .cultures pending. Echocardiogram EF normal. Continue broad antibiotic coverage. repeat ABG/chest imaging. Continue noninvasive ventilation. large AA gradient based on ABGs * Multifocal pneumonia likely aspiration. Aspiration precautions, continue antibiotic coverage * Sepsis-improving leukocytosis. white count is 16,000. Negative cultures to date * COPD exacerbation secondary to pneumonia-Continue bronchodilators/steroids/ oxygen * Anxiety disorder continue sertraline * GERD continue PPI * chronic pain on pain pump * Degenerative joint disease continue acetaminophen/hydrocodone/pain pump * Full code * Prophylaxis heparin Plan * continue noninvasive ventilation * continue ICU care * Close hemodynamic monitoring * pre-existing medical condition management as above Current Visit: Yes Medical - PN: Qual - VTE Deep Vein Thrombosis/Pulmonary Embolism Present on Admission: No
[2017-09-13] MEDS: SENNOSIDES/DOCUSATE SODIUM 1 TAB TABLET PO SCH (20:56)
[2017-09-14] MEDS: HYDROcodone/APAP 10/325MG TABLET PO PRN ×4 (03:00→21:06)
[2017-09-14 05:15] LABS: Mean Cell Volume 95.3 fL (80.0-100.0); Mean Corpuscular HGB Conc 31.9 g/dL (31.0-36.0); Mean Corpuscular Hemoglobin 30.4 pg (26.0-34.0); Platelet Count 510 K/mcL (140-440); RBC 4.67 M/mcL (4.00-5.20); Red Cell Distribution Width 14.5 % (11.5-14.5)
[2017-09-14 05:43] LABS: ALT/SGPT 19 U/l (0-40); Albumin 2.8 gm/dL (3.2-5.2); Albumin/Globulin Ratio 0.8 (1.0-2.3); Alkaline Phosphatase 71 U/L (39-117); Bilirubin,Direct 0.2 mg/dL (0.0-0.3); Blood Urea Nitrogen 10 mg/dl (8-23); Gamma Glutamyl Transpeptidase 41 U/L (5-36); Uric Acid 1.8 mg/dL (2.5-8.0)
[2017-09-14] MEDS ORDERED: VANCOMYCIN PER PHARMACY IV SCH ×2 (05:56→10:52)
[2017-09-14] MEDS: 0.9 % SODIUM CHLORIDE 10 ML SYRINGE IV SCH ×3 (05:57→22:48)
[2017-09-14] MEDS: PIPERACILLIN SODIUM/TAZOBACTAM 3.375 GM in DEXTROSE 5% IN WATER 50 ML IV SCH ×4 (05:58→23:55)
[2017-09-14] MEDS: OMEPRAZOLE 20 MG CAPSULE PO SCH (07:22)
[2017-09-14] MEDS: METHYLPHENIDATE HCL 30 MG PO SCH (08:00)
[2017-09-14] MEDS: HEPARIN 5,000 UNIT/ML VIAL SQ SCH ×2 (08:05→21:05)
[2017-09-14] MEDS: FUROSEMIDE 20 MG/2 ML VIAL IV SCH ×2 (08:05→16:28)
[2017-09-14] MEDS: SERTRALINE 50 MG TABLET PO SCH (08:05)
[2017-09-14] MEDS: DOCUSATE SODIUM 100 MG CAPSULE PO SCH ×2 (08:06→21:05)
[2017-09-14] MEDS: POTASSIUM CHLORIDE 20 MEQ PACKET PO PRN (08:06)
[2017-09-14] MEDS: POTASSIUM CITRATE 10 MEQ TAB.XL.24H PO SCH (08:34)
[2017-09-14] MEDS ORDERED: LEVOFLOXACIN 750 MG/150 ML BAG IV SCH (09:00)
[2017-09-14 09:19] LABS: Eosinophils % (Manual) 1 % (0-7); Lymphocytes % 14 % (15-49); Monocytes % (Manual) 5 % (1-12); Platelet Estimate INCREASED (NORMAL); RBC Morphology NORMAL (NORMAL); Segmented Neutrophils % 78 % (38-78)
--- NOTE | 2017-09-14 09:30 | Internal Med Progress Note ---
Medical - PN: Subj Patient information: Note initiated : 09/14/17 at 9:26 am Service Date, if different from initiated Date: [] Patient: Zari Marroquin a 62 y/o F admitted on 09/11/17 for Shortness of Breath Fever,Nausea, Aspiration Pneum. Chief Complaint: [] Interval history: Ms. Marroquin is a 62 year old F with a history of oxygen dependent COPD who until recently was an active smoker and quit smoking May. Patient has been living alone independently however the last 3 days patient has gotten progressively short of breath with increasing cough and sputum production. Patient also complains of associated fever but denies chest pain or weight loss. She denies sick contacts. Denies changes in medications. With worsening symptoms along with orthopnea she presents to the ER. Initial workup was significant for multifocal pneumonia on chest imaging along with white count 19,000.hospitalist service consulted At the time of evaluation patient is alert and oriented. She is moderately short of breath. On 3 L oxygen. Was able to endorse history as above. She denies shaking chills and drenching sweats, diarrhea or rash photophobia and neck stiffness. She denies arthralgia myalgia. She recently had her pain pump changed. gen were removed yesterday 09/12- patient patient's condition has significantly deteriorated over the last 12 hours. currently on 6 L oxygen mask. Diaphoretic. Labored breathing, tachypnea. Stat ABGs 7.53/33/60 on 5 L oxygen. Lactic acid 1.1. Chest CT pending. white count down from 18.7->16.6. Echocardiogram pending. strep pneumo and mycoplasma negative. On broad antibiotic coverage. Transfer to ICU in light of progressive hypoxic respiratory failure with a large AA gradient and a V/Q mismatch. start positive pressure ventilation.Further treatment will depend on CT findings. Sister at bedside. 09/13- patient doing remarkably better on noninvasive ventilation. Overnight slept well on BiPAP. White count down from 16.6-16.1. improving respiratory status.on 40% FiO2 BiPAP .B D glucan pending. secondary to worsening noticed start sulfamethoxazole. fungal cultures pending. Question bacterial pneumonia in light of normal pro calcitonin. continue conservative management/empiric antibiotic coverage. 09/14-patient doing better. Was on BiPAP all night. Currently on 6 L oxygen. Able to talk in full sentences. diffuse groundglass opacities on CT suggestive of ARDS versus opportunistic infection. However clinical improvement noted with existing treatment. transitioning to medical for today. White count down from 18.7-15.1. Continue gentle diuresis. potassium 3.1 on replacement. repeat chest imaging in 24 hours - Constitutional Vitals: Vital Signs Temp Pulse Resp BP Pulse Ox 99.0 F H 80 20 92/54 93 09/14/17 04:00 09/14/17 04:00 09/14/17 04:00 09/14/17 04:00 09/14/17 04:00 Period Temp Pulse Resp BP Sys/Gomes Pulse Ox Last 24 Hr 97.8 F-99.0 F 66-125 16-20 92-107/52-63 88-96 Intake and Output 09/13/17 09/14/17 09/14/17 21:59 05:59 13:59 Intake Total 300 / 300 1130 / 1130 50 / 50 Output Total 200 / 200 50 / 50 Balance 100 / 100 1080 / 1080 50 / 50 Weight 135 lb Intake & Output: Intake & Output 09/13/17 09/14/17 09/14/17 21:59 05:59 13:59 Intake Total 300 / 300 1130 / 1130 50 / 50 Output Total 200 / 200 50 / 50 Balance 100 / 100 1080 / 1080 50 / 50 Weight 135 lb Intake: IV 50 / 50 50 / 50 50 / 50 Zosyn 3.375 gm In Dextrose 5% 50 / 50 50 / 50 50 / 50 in Water 50 ml @ 100 mls/hr IV Q6H [facility] Rx#:[id number] Oral 250 / 250 1080 / 1080 Output: Void Amount 200 / 200 50 / 50 Other: Meal Lunch HS Snack-PB&J Percent of Meal Consumed 0% 75% Feeding Ability Assist with Tray Set Up Stool Size Moderate Small Stool Color Brown Brown Stool Consistency Soft Loose Liquid # Voids 2 2 # Bowel Movements 1 2 Medical - PN: Obj Da - Labs CBC & Chem 7: 09/14/17 03:31 09/14/17 03:31 Labs: Abnormal Lab Results 09/14/17 09/14/17 09/13/17 03:31 03:31 03:29 WBC 15.1 H RBC Hgb Hct Plt Count 510 H Seg Neutrophils % Lymphocytes % 14 L ESR Potassium 3.1 L Chloride 92 L Anion Gap BUN 7 L Creatinine 0.5 L 0.5 L Uric Acid 1.8 L 1.7 L Calcium 8.4 L 8.2 L GGT 41 H 42 H AST Lactate Dehydrogenase 410 H 432 H C-Reactive Protein NT-Pro-B Natriuret Pep Total Protein Albumin 2.8 L 2.6 L Globulin Albumin/Globulin Ratio 0.8 L 0.7 L Urine Protein Urine Ketones Urine Occult Blood Urine Urobilinogen Urine RBC Ur Squamous Epith Cells Urine Mucus 09/13/17 09/12/17 09/12/17 03:29 04:38 04:38 WBC 16.1 H 16.6 H RBC Hgb Hct Plt Count 459 H 447 H Seg Neutrophils % 82 H Lymphocytes % 14 L ESR Potassium Chloride Anion Gap BUN 6 L Creatinine 0.5 L Uric Acid 2.1 L Calcium 8.2 L GGT 42 H AST Lactate Dehydrogenase 378 H C-Reactive Protein NT-Pro-B Natriuret Pep Total Protein 5.8 L Albumin 2.5 L Globulin Albumin/Globulin Ratio 0.8 L Urine Protein Urine Ketones Urine Occult Blood Urine Urobilinogen Urine RBC Ur Squamous Epith Cells Urine Mucus 09/11/17 09/11/17 09/11/17 18:30 18:30 16:39 WBC RBC Hgb Hct Plt Count Seg Neutrophils % Lymphocytes % ESR 41 H Potassium Chloride Anion Gap BUN Creatinine Uric Acid Calcium GGT AST Lactate Dehydrogenase C-Reactive Protein 4.7 H NT-Pro-B Natriuret Pep Total Protein Albumin Globulin Albumin/Globulin Ratio Urine Protein 30 A Urine Ketones 80 A Urine Occult Blood 0.03 A Urine Urobilinogen 4.0 A Urine RBC 4 H Ur Squamous Epith Cells 12 H Urine Mucus Many A 09/11/17 09/11/17 09/11/17 15:52 15:51 15:51 WBC 18.7 H RBC 5.30 H Hgb 16.2 H Hct 49.3 H Plt Count 513 H Seg Neutrophils % 93 H Lymphocytes % 3 L ESR Potassium Chloride 91 L Anion Gap 19.0 H BUN 7 L Creatinine 0.5 L Uric Acid Calcium GGT AST 49 H Lactate Dehydrogenase C-Reactive Protein NT-Pro-B Natriuret Pep 368.0 H Total Protein Albumin 3.1 L Globulin 4.2 H Albumin/Globulin Ratio 0.7 L Urine Protein Urine Ketones Urine Occult Blood Urine Urobilinogen Urine RBC Ur Squamous Epith Cells Urine Mucus Meds: Medications Acetaminophen (Tylenol) 650 mg PO Q4-6HP PRN PRN Reason: PAIN/FEVER > 101 Last Admin: 09/13/17 20:59 Dose: 650 mg Hydrocodone Bitart/Acetaminophen ([place] 10/325mg) 1 tab PO Q4-6HP PRN PRN Reason: Pain Last Admin: 09/14/17 09:14 Dose: 1 tab Albuterol/Ipratropium (Duoneb) 3 ml NEB Q4HP PRN PRN Reason: Shortness Of Breath Last Admin: 09/12/17 21:17 Dose: 3 ml Budesonide (Pulmicort) 0.5 mg NEB Q12 [facility] Last Admin: 09/13/17 21:15 Dose: 0.5 mg Docusate Sodium (Colace) 100 mg PO BID [facility] Last Admin: 09/14/17 08:06 Dose: 100 mg Furosemide (Lasix) 20 mg IV BIDD [facility] Last Admin: 09/14/17 08:05 Dose: 20 mg Heparin Sodium (Porcine) (Heparin) 5,000 unit SQ Q12 [facility] Last Admin: 09/14/17 08:05 Dose: 5,000 unit Magnesium Sulfate (Magnesium Sulfate) 2 gm in 50 mls @ 50 mls/hr IV UD PRN PRN Reason: MG = or < 1.7 Last Admin: 09/14/17 08:02 Dose: 50 mls/hr Acetaminophen (Ofirmev) 1,000 mg in 100 mls @ 200 mls/hr IV Q6HP PRN PRN Reason: PAIN/FEVER > 101 Piperacillin Sod/Tazobactam (Sod 3.375 gm/ Dextrose) 50 mls @ 100 mls/hr IV Q6H [facility] Last Infusion: 09/14/17 06:30 Dose: Infused Levofloxacin (Levaquin) 750 mg in 150 mls @ 100 mls/hr IV Q24H [facility] Last Admin: 09/14/17 08:05 Dose: 100 mls/hr Vancomycin HCl 1,000 mg/ (Sodium Chloride) 250 mls @ 250 mls/hr IV Q12H [facility] Last Admin: 09/14/17 09:15 Dose: 250 mls/hr Omeprazole (Prilosec) 40 mg PO ACB [facility] Last Admin: 09/14/17 07:22 Dose: 40 mg Ondansetron HCl (Zofran) 4 mg IV Q4-6HP PRN PRN Reason: Nausea And Vomiting Methylphenidate Hcl [Quillichew Er] 30 Mg Tab 1 dose PO DAILY [facility] Last Admin: 09/14/17 08:00 Dose: Not Given Potassium Chloride (Klor-Con) 40 meq PO DAILYP PRN PRN Reason: K+ < 3.5 Last Admin: 09/14/17 08:06 Dose: 40 meq Potassium Citrate (Potassium Citrate) 10 meq PO QAMCC [facility] Last Admin: 09/14/17 08:34 Dose: 10 meq Senna/Docusate Sodium (Senna Plus Tablet) 1 tab PO HS [facility] Last Admin: 09/13/17 20:56 Dose: Not Given Sertraline HCl (Zoloft) 25 mg PO DAILY [facility] Last Admin: 09/14/17 08:05 Dose: 25 mg Sodium Chloride (Saline Flush) 10 ml IV Q8 [facility] Last Admin: 09/14/17 05:57 Dose: 10 ml Vancomycin HCl (Vancomycin Per Pharmacy) 1 order IV UD [facility] Medical - PN: A/P - Time Spent With Patient Total time spent is greater than 50% in coordination of care (as documented) at patient's floor/unit and/or counseling patient: 25 - 35 minutes (1) Aspiration pneumonia Status: Acute Assessment and plan: * Acute hypoxic respiratory failure-clinically improving. Currently on 6 L oxygen down from 30% FiO2.CT chest bilateral infiltrates .cultures pending. Echocardiogram EF normal. Continue broad antibiotic coverage. repeat ABG/ chest imaging. Continue noninvasive ventilation. large AA gradient based on ABGs * Multifocal pneumonia likely aspiration. Aspiration precautions, continue antibiotic coverage * Sepsis-improving leukocytosis. white count is 16,000. Negative cultures to date * COPD exacerbation secondary to pneumonia-Continue bronchodilators/steroids/ oxygen * Anxiety disorder continue sertraline * GERD continue PPI * chronic pain on pain pump * Degenerative joint disease continue acetaminophen/hydrocodone/pain pump * Full code * Prophylaxis heparin Plan * Transfer to medical floor * continue intermittent noninvasive ventilation to maintain oxygenation * Continue gentle diuresis * aggressive pulmonary toilet * replace potassium * Recheck chest imaging 24 hours Current Visit: Yes Medical - PN: Qual - VTE Deep Vein Thrombosis/Pulmonary Embolism Present on Admission: No
[2017-09-14] MEDS ORDERED: VANCOMYCIN 1,000 MG in 0.9 % SODIUM CHLORIDE 250 ML IV SCH (10:00)
[2017-09-14] MEDS: BUDESONIDE 0.5 MG/2 ML AMPUL.NEB NEB SCH ×2 (10:24→20:40)
[2017-09-14] MEDS ORDERED: ACETAMINOPHEN 1,000 MG/100 ML BOTTLE IV PRN (10:52)
[2017-09-14] MEDS ORDERED: POTASSIUM CHLORIDE 20 MEQ PACKET PO PRN (10:52)
[2017-09-14] MEDS ORDERED: ONDANSETRON 4 MG/2 ML VIAL IV PRN (10:52)
[2017-09-14] MEDS ORDERED: MAGNESIUM SULFATE 2 GM/50 ML BAG IV PRN (10:52)
[2017-09-14] MEDS: ACETAMINOPHEN 325 MG TABLET PO PRN (18:00)
[2017-09-14] MEDS: SENNOSIDES/DOCUSATE SODIUM 1 TAB TABLET PO SCH (21:05)
[2017-09-14] MEDS: VANCOMYCIN 1,000 MG in 0.9 % SODIUM CHLORIDE 250 ML IV SCH (22:48)
[2017-09-15] MEDS: HYDROcodone/APAP 10/325MG TABLET PO PRN ×4 (01:00→22:00)
[2017-09-15 05:45] LABS: Mean Cell Volume 93.8 fL (80.0-100.0); Mean Corpuscular HGB Conc 32.6 g/dL (31.0-36.0); Mean Corpuscular Hemoglobin 30.6 pg (26.0-34.0); Platelet Count 540 K/mcL (140-440); RBC 4.39 M/mcL (4.00-5.20)
[2017-09-15] MEDS: PIPERACILLIN SODIUM/TAZOBACTAM 3.375 GM in DEXTROSE 5% IN WATER 50 ML IV SCH ×4 (05:53→23:53)
[2017-09-15] MEDS: 0.9 % SODIUM CHLORIDE 10 ML SYRINGE IV SCH ×4 (05:53→21:52)
[2017-09-15 05:55] LABS: ALT/SGPT 17 U/l (0-40); Albumin 2.6 gm/dL (3.2-5.2); Albumin/Globulin Ratio 0.8 (1.0-2.3); Alkaline Phosphatase 63 U/L (39-117); Bilirubin,Direct < 0.2 mg/dL (0.0-0.3); Blood Urea Nitrogen 6 mg/dl (8-23); Gamma Glutamyl Transpeptidase 37 U/L (5-36); Uric Acid 1.6 mg/dL (2.5-8.0)
[2017-09-15] MEDS: OMEPRAZOLE 20 MG CAPSULE PO SCH (07:44)
[2017-09-15 08:43] LABS: Lymphocytes % 15 % (15-49); Monocytes % (Manual) 9 % (1-12); Platelet Estimate INCREASED (NORMAL); RBC Morphology NORMAL (NORMAL); Segmented Neutrophils % 76 % (38-78)
[2017-09-15] MEDS: DOCUSATE SODIUM 100 MG CAPSULE PO SCH ×3 (09:29→22:13)
[2017-09-15] MEDS: POTASSIUM CITRATE 10 MEQ TAB.XL.24H PO SCH (09:31)
[2017-09-15] MEDS: SERTRALINE 50 MG TABLET PO SCH (09:31)
[2017-09-15] MEDS: LEVOFLOXACIN 750 MG/150 ML BAG IV SCH (09:32)
[2017-09-15] MEDS: HEPARIN 5,000 UNIT/ML VIAL SQ SCH ×2 (09:39→21:51)
[2017-09-15] MEDS: BUDESONIDE 0.5 MG/2 ML AMPUL.NEB NEB SCH ×2 (09:46→20:48)
[2017-09-15] MEDS: IPRATROPIUM/ALBUTEROL 3 ML AMPUL.NEB NEB PRN ×2 (09:46→20:49)
[2017-09-15] MEDS: FUROSEMIDE 20 MG/2 ML VIAL IV SCH ×2 (11:12→16:06)
[2017-09-15] MEDS: VANCOMYCIN 1,000 MG in 0.9 % SODIUM CHLORIDE 250 ML IV SCH (11:12)
[2017-09-15] MEDS: ACETAMINOPHEN 325 MG TABLET PO PRN (12:34)
[2017-09-15] MEDS: POTASSIUM CHLORIDE 20 MEQ PACKET PO SCH ×2 (14:08→17:36)
--- NOTE | 2017-09-15 14:33 | Internal Med Progress Note ---
Medical - PN: Subj Patient information: Note initiated : 09/15/17 at 2:31 pm Service Date, if different from initiated Date: [] Patient: Zari Marroquin a 62 y/o F admitted on 09/11/17 for Shortness of Breath Fever,Nausea, Aspiration Pneum. Chief Complaint: f/u PNA Interval history: 09/11 Ms. Marroquin is a 62 year old F with a history of oxygen dependent COPD who until recently was an active smoker and quit smoking May. Patient has been living alone independently however the last 3 days patient has gotten progressively short of breath with increasing cough and sputum production. Patient also complains of associated fever but denies chest pain or weight loss. She denies sick contacts. Denies changes in medications. With worsening symptoms along with orthopnea she presents to the ER. Initial workup was significant for multifocal pneumonia on chest imaging along with white count 19,000.hospitalist service consulted At the time of evaluation patient is alert and oriented. She is moderately short of breath. On 3 L oxygen. Was able to endorse history as above. She denies shaking chills and drenching sweats, diarrhea or rash photophobia and neck stiffness. She denies arthralgia myalgia. She recently had her pain pump changed. gen were removed yesterday 09/12- patient patient's condition has significantly deteriorated over the last 12 hours. currently on 6 L oxygen mask. Diaphoretic. Labored breathing, tachypnea. Stat ABGs 7.53/33/60 on 5 L oxygen. Lactic acid 1.1. Chest CT pending. white count down from 18.7->16.6. Echocardiogram pending. strep pneumo and mycoplasma negative. On broad antibiotic coverage. Transfer to ICU in light of progressive hypoxic respiratory failure with a large AA gradient and a V/Q mismatch. start positive pressure ventilation.Further treatment will depend on CT findings. Sister at bedside. 09/13- patient doing remarkably better on noninvasive ventilation. Overnight slept well on BiPAP. White count down from 16.6-16.1. improving respiratory status.on 40% FiO2 BiPAP .B D glucan pending. secondary to worsening noticed start sulfamethoxazole. fungal cultures pending. Question bacterial pneumonia in light of normal pro calcitonin. continue conservative management/empiric antibiotic coverage. 09/14-patient doing better. Was on BiPAP all night. Currently on 6 L oxygen. Able to talk in full sentences. diffuse groundglass opacities on CT suggestive of ARDS versus opportunistic infection. However clinical improvement noted with existing treatment. transitioning to medical for today. White count down from 18.7-15.1. Continue gentle diuresis. potassium 3.1 on replacement. repeat chest imaging in 24 hours 09/15-Continues to improve. Remains on 6 lpm O2, but speaking in full sentences and respirations are unlabored. Feels tired. WBC continues to decline. - Constitutional Vitals: Vital Signs Temp Pulse Resp BP Pulse Ox 98 F 81 16 104/59 93 09/15/17 11:33 09/15/17 09:46 09/15/17 11:33 09/15/17 11:33 09/15/17 11:33 Period Temp Pulse Resp BP Sys/Gomes Pulse Ox Last 24 Hr 97.3 F-99.2 F 75-82 16-20 90-109/55-68 91-93 Intake and Output 09/15/17 09/15/17 09/15/17 05:59 13:59 21:59 Intake Total 1050 / 1050 1690 / 1690 150 / 150 Output Total 75 / 75 450 / 450 750 / 750 Balance 975 / 975 1240 / 1240 -600 / -600 Gen: In NAD Chest: Clear, unlabored, no wheezes or rales CV: RRR, no edema Abd: Soft, NT Neuro: Alert, Ox3, BRUNER Intake & Output: Intake & Output 09/15/17 09/15/17 09/15/17 05:59 13:59 21:59 Intake Total 1050 / 1050 1690 / 1690 150 / 150 Output Total 75 / 75 450 / 450 750 / 750 Balance 975 / 975 1240 / 1240 -600 / -600 Intake: IV 300 / 300 50 / 50 Zosyn 3.375 gm In Dextrose 5% 50 / 50 50 / 50 in Water 50 ml @ 100 mls/hr IV Q6H [facility] Rx#:[id number] Vancomycin 1,000 mg In Sodium 250 / 250 Chloride 0.9% 250 ml @ 250 mls/ hr IV Q12H [facility] Rx#:[id number] Oral 750 / 750 1640 / 1640 150 / 150 Output: Void Amount 75 / 75 450 / 450 750 / 750 Other: Meal Lunch Percent of Meal Consumed 25% Feeding Ability Independent Stool Size Small Moderate Stool Color Brown Brown Stool Consistency Loose Loose # Voids 2 1 1 # Bowel Movements 1 1 Medical - PN: Obj Da - Labs CBC & Chem 7: 09/15/17 04:45 09/15/17 04:45 Labs: Abnormal Lab Results 09/15/17 09/15/17 09/14/17 04:45 04:45 03:31 WBC 12.7 H Plt Count 540 H MPV 7.3 L Seg Neutrophils % Lymphocytes % Sodium 131 L Potassium 3.0 L 3.1 L Chloride 92 L 92 L BUN 6 L Creatinine 0.4 L 0.5 L Glucose 109 H Uric Acid 1.6 L 1.8 L Calcium 8.2 L 8.4 L GGT 37 H 41 H Lactate Dehydrogenase 412 H 410 H Albumin 2.6 L 2.8 L Albumin/Globulin Ratio 0.8 L 0.8 L 09/14/17 09/13/17 09/13/17 03:31 03:29 03:29 WBC 15.1 H 16.1 H Plt Count 510 H 459 H MPV Seg Neutrophils % 82 H Lymphocytes % 14 L 14 L Sodium Potassium Chloride BUN 7 L Creatinine 0.5 L Glucose Uric Acid 1.7 L Calcium 8.2 L GGT 42 H Lactate Dehydrogenase 432 H Albumin 2.6 L Albumin/Globulin Ratio 0.7 L Microbiology 09/11/17 15:51 Blood Culture - Preliminary Blood Meds: Medications Acetaminophen (Tylenol) 650 mg PO Q4-6HP PRN PRN Reason: PAIN/FEVER > 101 Last Admin: 09/15/17 12:34 Dose: 650 mg Hydrocodone Bitart/Acetaminophen (Bracey 10/325mg) 1 tab PO Q4-6HP PRN PRN Reason: Pain Last Admin: 09/15/17 09:31 Dose: 1 tab Albuterol/Ipratropium (Duoneb) 3 ml NEB Q4HP PRN PRN Reason: Shortness Of Breath Last Admin: 09/15/17 09:46 Dose: 3 ml Budesonide (Pulmicort) 0.5 mg NEB Q12 [facility] Last Admin: 09/15/17 09:46 Dose: 0.5 mg Docusate Sodium (Colace) 100 mg PO BID [facility] Last Admin: 09/15/17 09:29 Dose: Not Given Furosemide (Lasix) 20 mg IV BIDD [facility] Last Admin: 09/15/17 11:12 Dose: 20 mg Heparin Sodium (Porcine) (Heparin) 5,000 unit SQ Q12 [facility] Last Admin: 09/15/17 09:39 Dose: 5,000 unit Levofloxacin (Levaquin) 750 mg in 150 mls @ 100 mls/hr IV Q24H [facility] Last Admin: 09/15/17 09:32 Dose: 100 mls/hr Magnesium Sulfate (Magnesium Sulfate) 2 gm in 50 mls @ 50 mls/hr IV UD PRN PRN Reason: MG = or < 1.7 Acetaminophen (Ofirmev) 1,000 mg in 100 mls @ 200 mls/hr IV Q6HP PRN PRN Reason: PAIN/FEVER > 101 Piperacillin Sod/Tazobactam (Sod 3.375 gm/ Dextrose) 50 mls @ 100 mls/hr IV Q6H [facility] Last Admin: 09/15/17 12:30 Dose: 100 mls/hr Vancomycin HCl 1,000 mg/ (Sodium Chloride) 250 mls @ 250 mls/hr IV Q12H [facility] Last Admin: 09/15/17 11:12 Dose: 250 mls/hr Omeprazole (Prilosec) 40 mg PO ACB [facility] Last Admin: 09/15/17 07:44 Dose: 40 mg Ondansetron HCl (Zofran) 4 mg IV Q4-6HP PRN PRN Reason: Nausea And Vomiting Methylphenidate Hcl [Quillichew Er] 30 Mg Tab 1 dose PO DAILY [facility] Last Admin: 09/15/17 09:29 Dose: Not Given Potassium Chloride (Klor-Con) 40 meq PO DAILYP PRN PRN Reason: K+ < 3.5 Last Admin: 09/15/17 09:32 Dose: 40 meq Potassium Chloride (Klor-Con) 40 meq PO Q4H [facility] Stop: 09/15/17 17:46 Last Admin: 09/15/17 14:08 Dose: 40 meq Potassium Citrate (Potassium Citrate) 10 meq PO QAMCC [facility] Last Admin: 09/15/17 09:31 Dose: 10 meq Senna/Docusate Sodium (Senna Plus Tablet) 1 tab PO HS [facility] Last Admin: 09/14/17 21:05 Dose: Not Given Sertraline HCl (Zoloft) 25 mg PO DAILY [facility] Last Admin: 09/15/17 09:31 Dose: 25 mg Sodium Chloride (Saline Flush) 10 ml IV Q8 [facility] Last Admin: 09/15/17 13:40 Dose: 10 ml Vancomycin HCl (Vancomycin Per Pharmacy) 1 order IV UD [facility] - Impressions Echocardiogram from 09/13 The left ventricle is normal in size. The LV sommer are upper normal in thickness. Left ventricular systolic function is normal. The left atrium is borderline dilated. The IVC inspiratory collapse is abnormal at less than 50% Unable to assess RV systolic pressures due to absence of tricuspid regurgitation. Medical - PN: A/P - Time Spent With Patient Total time spent is greater than 50% in coordination of care (as documented) at patient's floor/unit and/or counseling patient: 25 - 35 minutes - Narrative A/P Narrative: 62-year-old female with underlying COPD admitted with dyspnea and multifocal pneumonia. Subsequent with worsening hypoxic respiratory failure requiring BiPAP support. Multifocal pneumonia. CT with diffuse groundglass changes. Is responding to antibiotic therapy, suggest pneumonia with underlying ARDS (vs. atypical or fungal pneumonia). Plan: Given improvement and lack of MRSA on cultures, will stop vancomycin. Continue with Zosyn/Levaquin, follow-up cultures and outstanding studies. Acute hypoxic respiratory failure secondary to above. Remains on 6 L oxygen, though is improved from a few days ago. Plan: Continue supportive care. Sepsis secondary to pneumonia. Improving. Plan: Continue to follow white count, continue with treatment of infection. COPD with exacerbation from pneumonia. No current wheezing today. Plan: Continue with current regimen. Gastroesophageal reflux disease. Plan: Continue PPI. Anxiety disorder. Stable. Plan: Continue sertraline. Chronic pain with pain pump in place and DJD. Plan: Continue pain pump, acetaminophen with hydrocodone. Prophylaxis: Heparin Medical - PN: Qual - VTE Deep Vein Thrombosis/Pulmonary Embolism Present on Admission: No
--- NOTE | 2017-09-15 20:01 | XRay Report ---
CLINICAL INFORMATION: Follow infiltrates COMPARISON: 09/11/2017 FINDINGS: Heart size and mediastinum are unremarkable. Diffuse mixed interstitial/alveolar infiltrates throughout both lungs worse in size the previous examination. There is relative sparing in both apical left upper lobe and lateral base regions. No effusion IMPRESSION: Diffuse mixed interstitial/alveolar infiltrates throughout both lungs - worsening considerably over the past four days. Consider: ARDS, opportunistic infection, pulmonary hemorrhage, hypersensitivity pneumonitis, or drug toxicity Interpreted and Authenticated by: Simon Rene 09/15/17
[2017-09-15] MEDS: SENNOSIDES/DOCUSATE SODIUM 1 TAB TABLET PO SCH ×2 (21:51→22:13)
[2017-09-16] MEDS: HYDROcodone/APAP 10/325MG TABLET PO PRN ×5 (02:05→23:13)
[2017-09-16] MEDS: PIPERACILLIN SODIUM/TAZOBACTAM 3.375 GM in DEXTROSE 5% IN WATER 50 ML IV SCH ×4 (05:40→23:18)
[2017-09-16] MEDS: 0.9 % SODIUM CHLORIDE 10 ML SYRINGE IV SCH ×4 (05:41→21:35)
[2017-09-16 06:07] LABS: Mean Cell Volume 94.2 fL (80.0-100.0); Mean Corpuscular HGB Conc 32.7 g/dL (31.0-36.0); Mean Corpuscular Hemoglobin 30.9 pg (26.0-34.0); Platelet Count 563 K/mcL (140-440); RBC 4.36 M/mcL (4.00-5.20); Red Cell Distribution Width 14.1 % (11.5-14.5)
[2017-09-16 06:32] LABS: ALT/SGPT 21 U/l (0-40); Albumin 2.7 gm/dL (3.2-5.2); Albumin/Globulin Ratio 0.8 (1.0-2.3); Alkaline Phosphatase 75 U/L (39-117); Bilirubin,Direct < 0.2 mg/dL (0.0-0.3); Blood Urea Nitrogen 4 mg/dl (8-23); Gamma Glutamyl Transpeptidase 44 U/L (5-36); Uric Acid 1.4 mg/dL (2.5-8.0)
[2017-09-16] MEDS: OMEPRAZOLE 20 MG CAPSULE PO SCH (07:32)
[2017-09-16 08:32] LABS: Eosinophils % (Manual) 1 % (0-7); Lymphocytes % 8 % (15-49); Monocytes % (Manual) 5 % (1-12); Platelet Estimate INCREASED (NORMAL); RBC Morphology NORMAL (NORMAL); Segmented Neutrophils % 86 % (38-78)
[2017-09-16] MEDS: SERTRALINE 50 MG TABLET PO SCH (09:16)
[2017-09-16] MEDS: HEPARIN 5,000 UNIT/ML VIAL SQ SCH ×2 (09:16→20:46)
[2017-09-16] MEDS: FUROSEMIDE 20 MG/2 ML VIAL IV SCH ×2 (09:16→16:06)
[2017-09-16] MEDS: POTASSIUM CITRATE 10 MEQ TAB.XL.24H PO SCH (09:16)
[2017-09-16] MEDS: DOCUSATE SODIUM 100 MG CAPSULE PO SCH ×2 (09:16→21:34)
[2017-09-16] MEDS ORDERED: VANCOMYCIN PER PHARMACY IV SCH (09:31)
[2017-09-16] MEDS: LEVOFLOXACIN 750 MG/150 ML BAG IV SCH ×2 (09:52→09:53)
[2017-09-16] MEDS ORDERED: VANCOMYCIN 1,500 MG in 0.9 % SODIUM CHLORIDE 500 ML IV ONE (10:00)
[2017-09-16] MEDS: BUDESONIDE 0.5 MG/2 ML AMPUL.NEB NEB SCH ×2 (10:44→20:56)
[2017-09-16] MEDS ORDERED: HYDROmorphone 2 MG/ML VIAL IV PRN ×2 (12:45→13:24)
[2017-09-16] MEDS ORDERED: HYDROmorphone 2 MG/ML VIAL IM ONE (13:23)
--- NOTE | 2017-09-16 19:19 | XRay Report ---
CLINICAL INFORMATION: Follow up diffuse infiltrates. ARDS is suspected clinically COMPARISON: 09/11/2017 and 09/15/2017 plain films FINDINGS: Heart size, mediastinum and pulmonary vessels are normal. Mixed interstitial/alveolar infiltrates diffusely throughout both lungs show general improved aeration particularly in the mid lungs and left base. No effusions. Bones soft tissues normal IMPRESSION: Diffuse mixed interstitial/alveolar infiltrates throughout both lungs showing modest improvement aeration in both mid and left lower lung infiltrate components compared to yesterday's film. Findings supportive of the clinical diagnosis of resolving ARDS. Interpreted and Authenticated by: Simon Rene 09/16/17
--- NOTE | 2017-09-16 20:29 | Internal Med Progress Note ---
Medical - PN: Subj Patient information: Note initiated : 09/16/17 at 8:27 pm Service Date, if different from initiated Date: [] Patient: Zari Marroquin a 62 y/o F admitted on 09/11/17 for Shortness of Breath Fever,Nausea, Aspiration Pneum. Chief Complaint: f/u pneumonia Interval history: 09/11 Ms. Marroquin is a 62 year old F with a history of oxygen dependent COPD who until recently was an active smoker and quit smoking May. Patient has been living alone independently however the last 3 days patient has gotten progressively short of breath with increasing cough and sputum production. Patient also complains of associated fever but denies chest pain or weight loss. She denies sick contacts. Denies changes in medications. With worsening symptoms along with orthopnea she presents to the ER. Initial workup was significant for multifocal pneumonia on chest imaging along with white count 19,000.hospitalist service consulted At the time of evaluation patient is alert and oriented. She is moderately short of breath. On 3 L oxygen. Was able to endorse history as above. She denies shaking chills and drenching sweats, diarrhea or rash photophobia and neck stiffness. She denies arthralgia myalgia. She recently had her pain pump changed. gen were removed yesterday 09/12- patient patient's condition has significantly deteriorated over the last 12 hours. currently on 6 L oxygen mask. Diaphoretic. Labored breathing, tachypnea. Stat ABGs 7.53/33/60 on 5 L oxygen. Lactic acid 1.1. Chest CT pending. white count down from 18.7->16.6. Echocardiogram pending. strep pneumo and mycoplasma negative. On broad antibiotic coverage. Transfer to ICU in light of progressive hypoxic respiratory failure with a large AA gradient and a V/Q mismatch. start positive pressure ventilation.Further treatment will depend on CT findings. Sister at bedside. 09/13- patient doing remarkably better on noninvasive ventilation. Overnight slept well on BiPAP. White count down from 16.6-16.1. improving respiratory status.on 40% FiO2 BiPAP .B D glucan pending. secondary to worsening noticed start sulfamethoxazole. fungal cultures pending. Question bacterial pneumonia in light of normal pro calcitonin. continue conservative management/empiric antibiotic coverage. 09/14-patient doing better. Was on BiPAP all night. Currently on 6 L oxygen. Able to talk in full sentences. diffuse groundglass opacities on CT suggestive of ARDS versus opportunistic infection. However clinical improvement noted with existing treatment. transitioning to medical for today. White count down from 18.7-15.1. Continue gentle diuresis. potassium 3.1 on replacement. repeat chest imaging in 24 hours 09/15-Continues to improve. Remains on 6 lpm O2, but speaking in full sentences and respirations are unlabored. Feels tired. WBC continues to decline. 09/16-white count increased to 18,000 today. Had the onset of severe left scapular pain. Worse with respirations, also worse with movement. Was tender over that area on exam. Radiograph actually with improving infiltrates, no evidence of pneumothorax. Later in the afternoon, symptoms had improved. - Constitutional Vitals: Vital Signs Temp Pulse Resp BP Pulse Ox 98.4 F 83 22 101/64 92 09/16/17 19:21 09/16/17 19:21 09/16/17 19:21 09/16/17 19:21 09/16/17 19:21 Period Temp Pulse Resp BP Sys/Gomes Pulse Ox Last 24 Hr 98.1 F-99.5 F 83-84 16-22 96-115/56-78 91-99 Intake and Output 09/16/17 09/16/17 09/16/17 05:59 13:59 21:59 Intake Total 1518 / 1518 1300 / 1300 770 / 770 Output Total 1605 / 1605 1800 / 1800 200 / 200 Balance -87 / -87 -500 / -500 570 / 570 Intake & Output: Intake & Output 09/16/17 09/16/17 09/16/17 05:59 13:59 21:59 Intake Total 1518 / 1518 1300 / 1300 770 / 770 Output Total 1605 / 1605 1800 / 1800 200 / 200 Balance -87 / -87 -500 / -500 570 / 570 Intake: IV 50 / 50 50 / 50 50 / 50 Zosyn 3.375 gm In Dextrose 5% 50 / 50 50 / 50 50 / 50 in Water 50 ml @ 100 mls/hr IV Q6H [facility] Rx#:[id number] Oral 1468 / 1468 1250 / 1250 720 / 720 Output: Void Amount 1605 / 1605 1800 / 1800 200 / 200 Other: Meal Dinner Percent of Meal Consumed 75% Feeding Ability Independent Stool Size Small Stool Color Brown Green Stool Consistency Loose # Voids 1 1 1 # Bowel Movements 1 Exam: General: Uncomfortable, later in the afternoon more comfortable Chest: Clear without wheezes or rhonchi, respirations mildly labored Cardiovascular: Regular, no edema Abdomen: Soft, nontender Musculoskeletal: Tenderness palpation over the medial distal scapula. No overlying erythema, no swelling. Neuro: Alert, oriented, nonfocal Medical - PN: Obj Da - Labs CBC & Chem 7: 09/16/17 05:05 09/16/17 05:05 Labs: Abnormal Lab Results 09/16/17 09/16/17 09/15/17 05:05 05:05 04:45 WBC 18.5 H Plt Count 563 H MPV 7.3 L Seg Neutrophils % 86 H Lymphocytes % 8 L Sodium 131 L Potassium 3.0 L Chloride 92 L BUN 4 L 6 L Creatinine 0.4 L 0.4 L Glucose 109 H Uric Acid 1.4 L 1.6 L Calcium 8.4 L 8.2 L GGT 44 H 37 H Lactate Dehydrogenase 504 H 412 H Albumin 2.7 L 2.6 L Albumin/Globulin Ratio 0.8 L 0.8 L 09/15/17 09/14/17 09/14/17 04:45 03:31 03:31 WBC 12.7 H 15.1 H Plt Count 540 H 510 H MPV 7.3 L Seg Neutrophils % Lymphocytes % 14 L Sodium Potassium 3.1 L Chloride 92 L BUN Creatinine 0.5 L Glucose Uric Acid 1.8 L Calcium 8.4 L GGT 41 H Lactate Dehydrogenase 410 H Albumin 2.8 L Albumin/Globulin Ratio 0.8 L Meds: Medications Acetaminophen (Tylenol) 650 mg PO Q4-6HP PRN PRN Reason: PAIN/FEVER > 101 Last Admin: 09/15/17 12:34 Dose: 650 mg Hydrocodone Bitart/Acetaminophen ([place] 10/325mg) 1 tab PO Q4-6HP PRN PRN Reason: Pain Last Admin: 09/16/17 19:33 Dose: 1 tab Albuterol/Ipratropium (Duoneb) 3 ml NEB Q4HP PRN PRN Reason: Shortness Of Breath Last Admin: 09/15/17 20:49 Dose: 3 ml Budesonide (Pulmicort) 0.5 mg NEB Q12 [facility] Last Admin: 09/16/17 10:44 Dose: Not Given Docusate Sodium (Colace) 100 mg PO BID [facility] Last Admin: 09/16/17 09:16 Dose: Not Given Furosemide (Lasix) 20 mg IV BIDD [facility] Last Admin: 09/16/17 16:06 Dose: 20 mg Heparin Sodium (Porcine) (Heparin) 5,000 unit SQ Q12 [facility] Last Admin: 09/16/17 09:16 Dose: 5,000 unit Hydromorphone HCl (Dilaudid) 1 mg IV Q2HP PRN PRN Reason: PAIN LEVEL > 6 Last Admin: 09/16/17 17:39 Dose: 1 mg Magnesium Sulfate (Magnesium Sulfate) 2 gm in 50 mls @ 50 mls/hr IV UD PRN PRN Reason: MG = or < 1.7 Acetaminophen (Ofirmev) 1,000 mg in 100 mls @ 200 mls/hr IV Q6HP PRN PRN Reason: PAIN/FEVER > 101 Piperacillin Sod/Tazobactam (Sod 3.375 gm/ Dextrose) 50 mls @ 100 mls/hr IV Q6H [facility] Last Admin: 09/16/17 17:41 Dose: 100 mls/hr Levofloxacin (Levaquin) 750 mg in 150 mls @ 100 mls/hr IV Q24H [facility] Last Admin: 09/16/17 09:53 Dose: 100 mls/hr Vancomycin HCl 1,250 mg/ (Sodium Chloride) 500 mls @ 333.333 mls/hr IV Q12H [facility] Omeprazole (Prilosec) 40 mg PO ACB [facility] Last Admin: 09/16/17 07:32 Dose: 40 mg Ondansetron HCl (Zofran) 4 mg IV Q4-6HP PRN PRN Reason: Nausea And Vomiting Methylphenidate Hcl [Quillichew Er] 30 Mg Tab 1 dose PO DAILY [facility] Last Admin: 09/16/17 09:16 Dose: Not Given Potassium Chloride (Klor-Con) 40 meq PO DAILYP PRN PRN Reason: K+ < 3.5 Last Admin: 09/15/17 09:32 Dose: 40 meq Potassium Citrate (Potassium Citrate) 10 meq PO QAMCC [facility] Last Admin: 09/16/17 09:16 Dose: 10 meq Senna/Docusate Sodium (Senna Plus Tablet) 1 tab PO HS [facility] Last Admin: 09/15/17 22:13 Dose: Not Given Sertraline HCl (Zoloft) 25 mg PO DAILY [facility] Last Admin: 09/16/17 09:16 Dose: 25 mg Sodium Chloride (Saline Flush) 10 ml IV Q8 [facility] Last Admin: 09/16/17 14:19 Dose: 10 ml Vancomycin HCl (Vancomycin Per Pharmacy) 1 order IV UD [facility] - Imaging and cardiology Chest x-ray Status: image reviewed by me Additional comments: Reviewed and discussed with Dr. Rene IMPRESSION: Diffuse mixed interstitial/alveolar infiltrates throughout both lungs showing modest improvement aeration in both mid and left lower lung infiltrate components compared to yesterday's film. Findings supportive of the clinical diagnosis of resolving ARDS. Medical - PN: A/P - Time Spent With Patient Total time spent is greater than 50% in coordination of care (as documented) at patient's floor/unit and/or counseling patient: Greater than 35 minutes - Narrative A/P Narrative: 62-year-old female with underlying COPD admitted with dyspnea and multifocal pneumonia. Subsequent with worsening hypoxic respiratory failure requiring BiPAP support. Multifocal pneumonia. CT with diffuse groundglass changes. Is responding to antibiotic therapy, suggest pneumonia with underlying ARDS (vs. atypical or fungal pneumonia). WBC worsening Sunday, though radiograph improved. Plan: Add back vancomycin, continue with Zosyn/Levaquin, follow-up cultures and outstanding studies. Right chest pain. Unclear etiology. Was tender with palpation. No evidence of pneumothorax or other process on chest x-ray. CT scan from a few days ago reviewed, no findings of the chest wall at that time. Has been on DVT prophylaxis throughout. Improved this afternoon. Plan: Supportive care Acute hypoxic respiratory failure secondary to above. Sunday afternoon on 5 L oxygen, improved from 6 L on Sat. Plan: Continue supportive care. Sepsis secondary to pneumonia. Improving, though WBC increased on Sunday. Plan: Continue to follow white count, continue with treatment of infection. COPD with exacerbation from pneumonia. No current wheezing. Plan: Continue with current regimen. Gastroesophageal reflux disease. Plan: Continue PPI. Anxiety disorder. Stable. Plan: Continue sertraline. Chronic pain with pain pump in place and DJD. Query whether this may have contributed to posterior chest pain on Sunday. Plan: Continue pain pump, acetaminophen with hydrocodone. Prophylaxis: Heparin Medical - PN: Qual - VTE Deep Vein Thrombosis/Pulmonary Embolism Present on Admission: No
[2017-09-16] MEDS: VANCOMYCIN 1,250 MG in 0.9 % SODIUM CHLORIDE 500 ML IV SCH (20:46)
[2017-09-16] MEDS: IPRATROPIUM/ALBUTEROL 3 ML AMPUL.NEB NEB PRN (20:56)
[2017-09-16] MEDS: SENNOSIDES/DOCUSATE SODIUM 1 TAB TABLET PO SCH (21:34)
[2017-09-17] MEDS: HYDROcodone/APAP 10/325MG TABLET PO PRN ×5 (04:37→21:33)
[2017-09-17] MEDS: PIPERACILLIN SODIUM/TAZOBACTAM 3.375 GM in DEXTROSE 5% IN WATER 50 ML IV SCH ×3 (05:50→18:06)
[2017-09-17] MEDS: 0.9 % SODIUM CHLORIDE 10 ML SYRINGE IV SCH ×4 (05:51→20:39)
[2017-09-17] MEDS: ACETAMINOPHEN 325 MG TABLET PO PRN ×2 (06:35→15:51)
[2017-09-17] MEDS: OMEPRAZOLE 20 MG CAPSULE PO SCH (06:38)
[2017-09-17 08:51] LABS: Basophils # (Auto) 0 K/mcL (0.0-0.3); Basophils % (Auto) 0.2 % (0.0-2.0); Eosinophils # (Auto) 0.7 K/mcL (0.0-0.7); Eosinophils % (Auto) 4.5 % (0.0-7.0); Granulocytes % (Auto) 79.8 % (38.0-78.0); Lymphocytes # (Auto) 1.6 K/mcL (1.5-4.8); Lymphocytes % (Auto) 10.9 % (15.5-49.0); Mean Cell Volume 93.4 fL (80.0-100.0); Mean Corpuscular Hemoglobin 30.8 pg (26.0-34.0); Monocytes # (Auto) 0.7 K/mcL (0.1-0.9); Monocytes % (Auto) 4.6 % (1.0-12.0); Platelet Count 586 K/mcL (140-440); RBC 4.22 M/mcL (4.00-5.20)
[2017-09-17 09:11] LABS: Fungitell (1-3) Assay <31 pg/mL
[2017-09-17] MEDS: BUDESONIDE 0.5 MG/2 ML AMPUL.NEB NEB SCH ×2 (09:30→20:36)
[2017-09-17] MEDS: SERTRALINE 50 MG TABLET PO SCH (09:45)
[2017-09-17] MEDS: DOCUSATE SODIUM 100 MG CAPSULE PO SCH ×2 (09:47→20:39)
[2017-09-17] MEDS: POTASSIUM CITRATE 10 MEQ TAB.XL.24H PO SCH (09:48)
[2017-09-17] MEDS: HEPARIN 5,000 UNIT/ML VIAL SQ SCH ×2 (09:50→20:38)
[2017-09-17] MEDS: FUROSEMIDE 20 MG/2 ML VIAL IV SCH ×2 (09:55→17:16)
[2017-09-17 10:13] LABS: Blood Urea Nitrogen 6 mg/dl (8-23)
[2017-09-17] MEDS: LEVOFLOXACIN 750 MG/150 ML BAG IV SCH (10:41)
[2017-09-17] MEDS: VANCOMYCIN 1,250 MG in 0.9 % SODIUM CHLORIDE 500 ML IV SCH ×2 (11:53→20:38)
[2017-09-17] MEDS ORDERED: IOPAMIDOL 100 ML BOTTLE IV ONE (15:33)
[2017-09-17] MEDS ORDERED: CETIRIZINE 10 MG TABLET PO ONE (16:04)
--- NOTE | 2017-09-17 16:13 | Cat Scan Report ---
CLINICAL INFORMATION: Reason for Exam:Hypoxia, eval for PE, f/u infiltrates COMPARISON: 09/12/17 TECHNIQUE: Axial images obtained through the chest. intravenous contrast administration was administered, and scanning was performed during pulmonary arterial phase. Sagittally and coronally reformatted images were obtained. MIP reformatted images. FINDINGS: Moderately severe diffuse groundglass alveolar opacities are present in both lungs. This has a mosaic distribution with sparing of many of the secondary pulmonary lobules. There is thickening of the interlobular septa, most apparent in the upper lobes. The groundglass alveolar opacities and thickening of the interlobular septa have become worse, especially in the upper lobes, since 09/12/17. There are also several small nodular densities bilaterally. Most of them have remained stable. There is a 1.1 x 1.7 cm nodular density medially in the right apex on the prior study which is no longer present. These nodular densities are more likely an inflammatory reaction related to an neoplasm. No pleural effusion has developed. There are few nonspecific lymph nodes in the mediastinum and both trupti. The measure up to 1.5 cm in the pretracheal retrocaval space. The pulmonary arteries are normal with no intraluminal filling defects. The heart is normal in size and contour. There are couple calcified plaques in the left anterior descending coronary artery. The aorta is normal in caliber. There is some sludge in the gallbladder. Visualized portions of liver and spleen are normal. IMPRESSION: Worsening groundglass infiltrates with some underlying nodularity of the lung parenchyma bilaterally. This is nonspecific and could be due to bronchiolitis obliterans organizing pneumonia, infection, collagen vascular disease, hypersensitivity reaction or several other uncommon entities. Lung biopsy may be required for definitive diagnosis. Interpreted and Authenticated by: Tyron Santana 09/17/17
--- NOTE | 2017-09-17 18:02 | Internal Med Progress Note ---
Medical - PN: Subj Patient information: Note initiated : 09/17/17 at 5:53 pm Service Date, if different from initiated Date: [] Patient: Zari Marroquin a 62 y/o F admitted on 09/11/17 for Shortness of Breath Fever,Nausea, Aspiration Pneum. Chief Complaint: f/u PNA Interval history: 09/11 Ms. Marroquin is a 62 year old F with a history of oxygen dependent COPD who until recently was an active smoker and quit smoking May. Patient has been living alone independently however the last 3 days patient has gotten progressively short of breath with increasing cough and sputum production. Patient also complains of associated fever but denies chest pain or weight loss. She denies sick contacts. Denies changes in medications. With worsening symptoms along with orthopnea she presents to the ER. Initial workup was significant for multifocal pneumonia on chest imaging along with white count 19,000.hospitalist service consulted At the time of evaluation patient is alert and oriented. She is moderately short of breath. On 3 L oxygen. Was able to endorse history as above. She denies shaking chills and drenching sweats, diarrhea or rash photophobia and neck stiffness. She denies arthralgia myalgia. She recently had her pain pump changed. gen were removed yesterday 09/12- patient patient's condition has significantly deteriorated over the last 12 hours. currently on 6 L oxygen mask. Diaphoretic. Labored breathing, tachypnea. Stat ABGs 7.53/33/60 on 5 L oxygen. Lactic acid 1.1. Chest CT pending. white count down from 18.7->16.6. Echocardiogram pending. strep pneumo and mycoplasma negative. On broad antibiotic coverage. Transfer to ICU in light of progressive hypoxic respiratory failure with a large AA gradient and a V/Q mismatch. start positive pressure ventilation.Further treatment will depend on CT findings. Sister at bedside. 09/13- patient doing remarkably better on noninvasive ventilation. Overnight slept well on BiPAP. White count down from 16.6-16.1. improving respiratory status.on 40% FiO2 BiPAP .B D glucan pending. secondary to worsening noticed start sulfamethoxazole. fungal cultures pending. Question bacterial pneumonia in light of normal pro calcitonin. continue conservative management/empiric antibiotic coverage. 09/14-patient doing better. Was on BiPAP all night. Currently on 6 L oxygen. Able to talk in full sentences. diffuse groundglass opacities on CT suggestive of ARDS versus opportunistic infection. However clinical improvement noted with existing treatment. transitioning to medical for today. White count down from 18.7-15.1. Continue gentle diuresis. potassium 3.1 on replacement. repeat chest imaging in 24 hours 09/15-Continues to improve. Remains on 6 lpm O2, but speaking in full sentences and respirations are unlabored. Feels tired. WBC continues to decline. 09/16-white count increased to 18,000 today. Had the onset of severe left scapular pain. Worse with respirations, also worse with movement. Was tender over that area on exam. Radiograph actually with improving infiltrates, no evidence of pneumothorax. Later in the afternoon, symptoms had improved. 09/17-Still on 6-7 lpm of oxygen. Right scapula pain improved. Dyspnea stable, no sputum production. WBC down to 14K from 18K. Given persistent hypoxema with generally clear lung exam and clinical improvement, CTA obtained (note: iodine allergy is topical-dermatitis, not to IV contrast). Ground glass opacities appear worsening. Have asked Dr. Desouza to see for pulmonary. - Constitutional Vitals: Vital Signs Temp Pulse Resp BP Pulse Ox 98.1 F 75 18 110/62 95 09/17/17 16:00 09/17/17 11:57 09/17/17 16:00 09/17/17 16:00 09/17/17 16:00 Period Temp Pulse Resp BP Sys/Gomes Pulse Ox Last 24 Hr 98 F-98.4 F 72-95 16-22 98-125/52-72 89-95 Intake and Output 09/17/17 09/17/17 09/17/17 05:59 13:59 21:59 Intake Total 1370 / 1370 670 / 670 480 / 480 Output Total 1600 / 1600 250 / 250 Balance 1370 / 1370 -930 / -930 230 / 230 Intake & Output: Intake & Output 09/17/17 09/17/17 09/17/17 05:59 13:59 21:59 Intake Total 1370 / 1370 670 / 670 480 / 480 Output Total 1600 / 1600 250 / 250 Balance 1370 / 1370 -930 / -930 230 / 230 Intake: IV 550 / 550 250 / 250 Zosyn 3.375 gm In Dextrose 5% 50 / 50 100 / 100 in Water 50 ml @ 100 mls/hr IV Q6H [facility] Rx#:[id number] Vancomycin 1,250 mg In Sodium 500 / 500 Chloride 0.9% 500 ml @ 333.333 mls/hr IV Q12H [facility] Rx#: [id number] Oral 820 / 820 420 / 420 480 / 480 Output: Void Amount 1600 / 1600 250 / 250 Other: Meal Nourishment/Supplement Lunch Percent of Meal Consumed 100% 100% Feeding Ability Independent Independent Stool Size Small Stool Color Brown Stool Consistency Liquid # Voids 1 0 # Bowel Movements 1 Exam: General: Sitting in bed, appears comfortable Chest: Clear bilaterally, no wheezes, no rales, mildly labored Cardiovascular: Regular rate and rhythm, no edema, no JVP elevation Abdomen: Soft, nontender Neuro: Alert, oriented 3, nonfocal Medical - PN: Obj Da - Labs CBC & Chem 7: 09/17/17 08:10 09/17/17 08:10 Labs: Abnormal Lab Results 09/17/17 09/17/17 09/16/17 08:10 08:10 05:05 WBC 14.8 H Plt Count 586 H MPV 7.1 L Gran % 79.8 H Lymph % (Auto) 10.9 L Gran # 11.8 H Seg Neutrophils % Lymphocytes % Sodium Potassium Chloride BUN 6 L 4 L Creatinine 0.5 L 0.4 L Glucose 131 H Uric Acid 1.4 L Calcium 8.4 L 8.4 L GGT 44 H Lactate Dehydrogenase 504 H Albumin 2.7 L Albumin/Globulin Ratio 0.8 L 09/16/17 09/15/17 09/15/17 05:05 04:45 04:45 WBC 18.5 H 12.7 H Plt Count 563 H 540 H MPV 7.3 L 7.3 L Gran % Lymph % (Auto) Gran # Seg Neutrophils % 86 H Lymphocytes % 8 L Sodium 131 L Potassium 3.0 L Chloride 92 L BUN 6 L Creatinine 0.4 L Glucose 109 H Uric Acid 1.6 L Calcium 8.2 L GGT 37 H Lactate Dehydrogenase 412 H Albumin 2.6 L Albumin/Globulin Ratio 0.8 L Microbiology 09/11/17 15:51 Blood Culture - Final Blood Meds: Medications Acetaminophen (Tylenol) 650 mg PO Q4-6HP PRN PRN Reason: PAIN/FEVER > 101 Last Admin: 09/17/17 15:51 Dose: 650 mg Hydrocodone Bitart/Acetaminophen (Sullivan 10/325mg) 1 tab PO Q4-6HP PRN PRN Reason: Pain Last Admin: 09/17/17 13:58 Dose: 1 tab Albuterol/Ipratropium (Duoneb) 3 ml NEB Q4HP PRN PRN Reason: Shortness Of Breath Last Admin: 09/16/17 20:56 Dose: 3 ml Budesonide (Pulmicort) 0.5 mg NEB Q12 [facility] Last Admin: 09/17/17 09:30 Dose: 0.5 mg Cetirizine HCl (Zyrtec) 10 mg PO DAILY [facility] Docusate Sodium (Colace) 100 mg PO BID [facility] Last Admin: 09/17/17 09:47 Dose: Not Given Furosemide (Lasix) 20 mg IV BIDD [facility] Last Admin: 09/17/17 17:16 Dose: 20 mg Heparin Sodium (Porcine) (Heparin) 5,000 unit SQ Q12 [facility] Last Admin: 09/17/17 09:50 Dose: 5,000 unit Hydromorphone HCl (Dilaudid) 1 mg IV Q2HP PRN PRN Reason: PAIN LEVEL > 6 Last Admin: 09/16/17 17:39 Dose: 1 mg Magnesium Sulfate (Magnesium Sulfate) 2 gm in 50 mls @ 50 mls/hr IV UD PRN PRN Reason: MG = or < 1.7 Acetaminophen (Ofirmev) 1,000 mg in 100 mls @ 200 mls/hr IV Q6HP PRN PRN Reason: PAIN/FEVER > 101 Piperacillin Sod/Tazobactam (Sod 3.375 gm/ Dextrose) 50 mls @ 100 mls/hr IV Q6H [facility] Last Infusion: 09/17/17 13:46 Dose: Infused Levofloxacin (Levaquin) 750 mg in 150 mls @ 100 mls/hr IV Q24H [facility] Last Infusion: 09/17/17 12:11 Dose: Infused Vancomycin HCl 1,250 mg/ (Sodium Chloride) 500 mls @ 333.333 mls/hr IV Q12H [facility] Last Admin: 09/17/17 11:53 Dose: 200 mls/hr Omeprazole (Prilosec) 40 mg PO ACB [facility] Last Admin: 09/17/17 06:38 Dose: 40 mg Ondansetron HCl (Zofran) 4 mg IV Q4-6HP PRN PRN Reason: Nausea And Vomiting Methylphenidate Hcl [Quillichew Er] 30 Mg Tab 1 dose PO DAILY [facility] Last Admin: 09/17/17 11:56 Dose: Not Given Potassium Chloride (Klor-Con) 40 meq PO DAILYP PRN PRN Reason: K+ < 3.5 Last Admin: 09/15/17 09:32 Dose: 40 meq Potassium Citrate (Potassium Citrate) 10 meq PO QAMCC [facility] Last Admin: 09/17/17 09:48 Dose: 10 meq Senna/Docusate Sodium (Senna Plus Tablet) 1 tab PO HS [facility] Last Admin: 09/16/17 21:34 Dose: Not Given Sertraline HCl (Zoloft) 25 mg PO DAILY [facility] Last Admin: 09/17/17 09:45 Dose: 25 mg Sodium Chloride (Saline Flush) 10 ml IV Q8 [facility] Last Admin: 09/17/17 13:16 Dose: 10 ml Vancomycin HCl (Vancomycin Per Pharmacy) 1 order IV UD [facility] - Imaging and cardiology CT scan - chest Status: image reviewed by me Additional comments: No PE, worsening ground-glass changes. Discussed w/ Dr. Santana Medical - PN: A/P - Time Spent With Patient Total time spent is greater than 50% in coordination of care (as documented) at patient's floor/unit and/or counseling patient: Greater than 35 minutes - Narrative A/P Narrative: 62-year-old female with underlying COPD admitted with dyspnea and multifocal pneumonia. Subsequent with worsening hypoxic respiratory failure requiring BiPAP support. Multifocal pneumonia. Noted on CXR at admission, subsequent respiratory failure with need of BiPAP. CT w/o contrast with diffuse groundglass changes. Slowly responding to antibiotic therapy, suggest pneumonia with underlying ARDS (vs. atypical or fungal pneumonia). WBC worsening Sunday, better Sunday after vancomycin added back. Given persistent hypoxia, will ask pulmonary to see Plan: Continue vancomycin, Zosyn and Levaquin, follow-up cultures and outstanding studies. Right chest pain. Unclear etiology, but may be M/S as was tender with palpation. Improved. No PE on current CT. Plan: Supportive care Acute hypoxic respiratory failure secondary to above. Antoien on 6 lpm. Plan: Continue supportive care, pulm consult Sepsis secondary to pneumonia. Improving, though WBC increased on Sunday. Plan: Continue to follow white count, continue with treatment of infection. COPD with exacerbation from pneumonia. No current wheezing. Plan: Continue with current regimen. Gastroesophageal reflux disease. Plan: Continue PPI. Anxiety disorder. Stable. Plan: Continue sertraline. Chronic pain with pain pump in place and DJD. Query whether this may have contributed to posterior chest pain on Sunday. Plan: Continue pain pump, acetaminophen with hydrocodone. Prophylaxis: Heparin Medical - PN: Qual - VTE Deep Vein Thrombosis/Pulmonary Embolism Present on Admission: No
[2017-09-17] MEDS: SENNOSIDES/DOCUSATE SODIUM 1 TAB TABLET PO SCH (20:39)
--- NOTE | 2017-09-17 21:50 | Consultation ---
DATE OF CONSULTATION: 09/17/2017 PULMONARY CONSULTATION REQUESTING: Dr. De Leon. CONSULTING: Israel Desouza MD PATIENT AGE: 62. HISTORY OF PRESENT ILLNESS: The patient is a 62-year-old female admitted on 09/11/2017 after presenting with a history of progressive shortness of breath, feeling chest heaviness, increasing cough. She denies significant sputum production throughout this clinical course. She denies nickolas fever, sweats or chills but states she thinks a fever was detected in the emergency room. She was admitted and found to have diffuse pulmonary ground glass infiltrates and deteriorated to the point of needing BiPAP therapy. She continues on high flow oxygen at this point in time. PAST HISTORY: The patient indicates that [place] in [place] [facility]. 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 In that capacity she had a PPD skin tests which she states all were negative. She indicates that there is a dog in the home but she does not consider herself an allergic person. No unusual pets, plants or birds. She indicates that she has been doing some traveling recently. Her who is from [place], has apparently inherited a home there and the plan is to relocate to [place] near his family. She reports returning from a trip to [place] on 08/14. She subsequently in early August had surgery to replace a pain pump. She states she just had the gen out for that surgery 2 or 3 days before presenting to the hospital. She reports staying with a friend for a period of convalescence and then returned to her own home. She states that she had a 3 day siege of nausea, vomiting and diarrhea after returning home from her friends house and prior to presenting for evaluation. She states that it was after the nausea and vomiting thqt she was never really well after that and progressed to more cough, shortness of breath and difficulty. She denies any other hobbies or exposures, welding, harsh chemicals or things of that nature. She does have fairly profound sounding and symptomatic gastroesophageal reflux disease for which she has been on acid suppression therapy with omeprazole for many years. She tends to sleep flat on her sides as her back is the difficulty to try and lie flat. She does not routinely have a bedtime snack. The patient was on admission covered broadly with antibiotics including vancomycin, Levaquin and Zosyn. . Sulfamethoxazole was considered. Fungal cultures are apparently pending, although the sputum has not been productive or cultured to a significant degree due to little sputum production. The patient's clinical course is one of relative significant improvement, although she is still requiring high flow oxygen. The patient indicates that she smoked for approximately 40 years, 2 packs or more a day at her peak. She quit in May. She also provides a history of fibromyalgia for which she has tried a number of medicines and she states she was unable to tolerate those medicines. A detailed system review is negative, except as recorded above with the exception of a family history of intermittent heart rhythm disturbance which apparently is transient. She indicates she has that, but it has not bothered her for some time. She otherwise denies cardiac issues, dependent edema or other. PHYSICAL EXAMINATION: GENERAL: Pleasant, quite conversational female, not appearing to be in significant respiratory distress at this time but requiring a high FIO2. HEENT: Head: Atraumatic, normocephalic. NECK: Supple. Carotids either hyperdynamic heart with a bit of a radiated bruit or an aortic flow murmur on the right. LUNGS: Decreased breath sounds throughout with fine interstitial crackles in the bases and posterior lung carballo. Has coarser and crisper crackles anteriorly bilaterally. HEART: Regular S1, S2, no apparent gallop, rub, jugular venous distention or dependent edema. ABDOMEN: Soft. Bowel sounds are present. There is epigastric tenderness consistent with gastroesophageal reflux disease. No organomegaly or mass. BONES, JOINTS AND EXTREMITIES: Without acute changes. NEUROLOGIC: Nonfocal. LABORATORY DATA: Laboratory data collected thus far includes serial CBCs with a white count 14.8 today, having been as low as 12.7 and as high as 18 or 19. Potassium was low transiently but apparently responded to. LDH is elevated in the 400 to 500 range. Review of x-rays and CT scans of the chest demonstrate some presence of bronchiectasis as well as perhaps a more chronic interstitial reticular nodular pattern. Bronchiectasis is always suspicious for chronic infectious processes or recurrent aspiration to my mind. 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 The differential diagnosis would include recent acid aspiration with her vomiting episode resulting in a near acute respiratory distress syndrome picture versus recent travel to a histoplasmosis endemic area with possible infection versus a collagen vascular disease from her history of fibromyalgia as well as simple bacterial pneumonia. Discussed with hospitalist team as noted above and suggest a collagen vascular battery fungal serology for histoplasmosis and observe with consideration for steroid therapy if a more collagen vascular disease etiology appears to be manifest. Would [place] an antireflux regimen including elevating head of bed and empty stomach except for meal times. Thank you for the opportunity to participate in the care of this complex and interesting patient, a very pleasant lady. KJP:margo Job ID: [id number] Doc ID: [id number] Israel Desouza MD MTDD
[2017-09-18 05:35] LABS: Basophils # (Auto) 0 K/mcL (0.0-0.3); Basophils % (Auto) 0.1 % (0.0-2.0); Eosinophils # (Auto) 0.7 K/mcL (0.0-0.7); Eosinophils % (Auto) 3.6 % (0.0-7.0); Granulocytes % (Auto) 85.4 % (38.0-78.0); Lymphocytes # (Auto) 1.2 K/mcL (1.5-4.8); Lymphocytes % (Auto) 6.3 % (15.5-49.0); Mean Cell Volume 94.3 fL (80.0-100.0); Mean Corpuscular HGB Conc 32.2 g/dL (31.0-36.0); Mean Corpuscular Hemoglobin 30.4 pg (26.0-34.0); Monocytes # (Auto) 0.9 K/mcL (0.1-0.9); Monocytes % (Auto) 4.6 % (1.0-12.0); Platelet Count 635 K/mcL (140-440); RBC 4.33 M/mcL (4.00-5.20)
[2017-09-18] MEDS: PIPERACILLIN SODIUM/TAZOBACTAM 3.375 GM in DEXTROSE 5% IN WATER 50 ML IV SCH ×4 (06:05→17:36)
[2017-09-18] MEDS: 0.9 % SODIUM CHLORIDE 10 ML SYRINGE IV SCH ×3 (06:05→21:41)
[2017-09-18 06:06] LABS: Rheumatoid Factor 15 IU/ml (0-14)
[2017-09-18 06:22] LABS: Blood Urea Nitrogen 5 mg/dl (8-23)
[2017-09-18] MEDS: OMEPRAZOLE 20 MG CAPSULE PO SCH (06:52)
[2017-09-18] MEDS: SERTRALINE 50 MG TABLET PO SCH (08:38)
[2017-09-18] MEDS: CETIRIZINE 10 MG TABLET PO SCH (08:38)
[2017-09-18] MEDS: FUROSEMIDE 20 MG/2 ML VIAL IV SCH ×2 (08:38→16:12)
[2017-09-18] MEDS: POTASSIUM CITRATE 10 MEQ TAB.XL.24H PO SCH (08:38)
[2017-09-18] MEDS: DOCUSATE SODIUM 100 MG CAPSULE PO SCH ×2 (08:39→21:40)
[2017-09-18] MEDS: HEPARIN 5,000 UNIT/ML VIAL SQ SCH ×2 (08:39→21:40)
[2017-09-18] MEDS: VANCOMYCIN 1,250 MG in 0.9 % SODIUM CHLORIDE 500 ML IV SCH ×2 (09:00→21:41)
[2017-09-18] MEDS: LEVOFLOXACIN 750 MG/150 ML BAG IV SCH (10:05)
[2017-09-18] MEDS: BUDESONIDE 0.5 MG/2 ML AMPUL.NEB NEB SCH ×2 (10:46→21:04)
[2017-09-18] MEDS: HYDROcodone/APAP 10/325MG TABLET PO PRN ×2 (13:16→17:41)
[2017-09-18] MEDS: ACETAMINOPHEN 325 MG TABLET PO PRN (16:11)
--- NOTE | 2017-09-18 18:10 | Internal Med Progress Note ---
Medical - PN: Subj Patient information: Note initiated : 09/18/17 at 6:02 pm Service Date, if different from initiated Date: [] Patient: Zari Marroquin a 62 y/o F admitted on 09/11/17 for Shortness of Breath Fever,Nausea, Aspiration Pneum. Chief Complaint: [] Interval history: 09/11 Ms. Marroquin is a 62 year old F with a history of oxygen dependent COPD who until recently was an active smoker and quit smoking May. Patient has been living alone independently however the last 3 days patient has gotten progressively short of breath with increasing cough and sputum production. Patient also complains of associated fever but denies chest pain or weight loss. She denies sick contacts. Denies changes in medications. With worsening symptoms along with orthopnea she presents to the ER. Initial workup was significant for multifocal pneumonia on chest imaging along with white count 19,000.hospitalist service consulted At the time of evaluation patient is alert and oriented. She is moderately short of breath. On 3 L oxygen. Was able to endorse history as above. She denies shaking chills and drenching sweats, diarrhea or rash photophobia and neck stiffness. She denies arthralgia myalgia. She recently had her pain pump changed. gen were removed yesterday 09/12- patient patient's condition has significantly deteriorated over the last 12 hours. currently on 6 L oxygen mask. Diaphoretic. Labored breathing, tachypnea. Stat ABGs 7.53/33/60 on 5 L oxygen. Lactic acid 1.1. Chest CT pending. white count down from 18.7->16.6. Echocardiogram pending. strep pneumo and mycoplasma negative. On broad antibiotic coverage. Transfer to ICU in light of progressive hypoxic respiratory failure with a large AA gradient and a V/Q mismatch. start positive pressure ventilation.Further treatment will depend on CT findings. Sister at bedside. 09/13- patient doing remarkably better on noninvasive ventilation. Overnight slept well on BiPAP. White count down from 16.6-16.1. improving respiratory status.on 40% FiO2 BiPAP .B D glucan pending. secondary to worsening noticed start sulfamethoxazole. fungal cultures pending. Question bacterial pneumonia in light of normal pro calcitonin. continue conservative management/empiric antibiotic coverage. 09/14-patient doing better. Was on BiPAP all night. Currently on 6 L oxygen. Able to talk in full sentences. diffuse groundglass opacities on CT suggestive of ARDS versus opportunistic infection. However clinical improvement noted with existing treatment. transitioning to medical for today. White count down from 18.7-15.1. Continue gentle diuresis. potassium 3.1 on replacement. repeat chest imaging in 24 hours 09/15-Continues to improve. Remains on 6 lpm O2, but speaking in full sentences and respirations are unlabored. Feels tired. WBC continues to decline. 09/16-white count increased to 18,000 today. Had the onset of severe left scapular pain. Worse with respirations, also worse with movement. Was tender over that area on exam. Radiograph actually with improving infiltrates, no evidence of pneumothorax. Later in the afternoon, symptoms had improved. 09/17-Still on 6-7 lpm of oxygen. Right scapula pain improved. Dyspnea stable, no sputum production. WBC down to 14K from 18K. Given persistent hypoxema with generally clear lung exam and clinical improvement, CTA obtained (note: iodine allergy is topical-dermatitis, not to IV contrast). Ground glass opacities appear worsening. Have asked Dr. Desouza to see for pulmonary. 09/18-Oxygen requirements bit better, down to 4-5 L of oxygen. Still with intermittent right scapula pain. No sputum production. Collagen-vascular labs sent, are pending. White count up to 19,000. - Constitutional Vitals: Vital Signs Temp Pulse Resp BP Pulse Ox 98.8 F 80 16 106/57 95 09/18/17 15:57 09/18/17 10:48 09/18/17 15:57 09/18/17 15:57 09/18/17 15:57 Period Temp Pulse Resp BP Sys/Gomes Pulse Ox Last 24 Hr 98.5 F-100.2 F 80-113 16-22 94-124/57-76 85-95 Intake and Output 09/18/17 09/18/17 09/18/17 05:59 13:59 21:59 Intake Total 1350 / 1350 1080 / 1080 800 / 800 Output Total 900 / 900 950 / 950 350 / 350 Balance 450 / 450 130 / 130 450 / 450 Weight 145 lb 14.4 oz Patient Weight 09/19/17 05:59 Weight 145 lb 14.4 oz Intake & Output: Intake & Output 09/18/17 09/18/17 09/18/17 05:59 13:59 21:59 Intake Total 1350 / 1350 1080 / 1080 800 / 800 Output Total 900 / 900 950 / 950 350 / 350 Balance 450 / 450 130 / 130 450 / 450 Weight 145 lb 14.4 oz Intake: IV 550 / 550 600 / 600 Zosyn 3.375 gm In Dextrose 5% 50 / 50 100 / 100 in Water 50 ml @ 100 mls/hr IV Q6H [facility] Rx#:[id number] Vancomycin 1,250 mg In Sodium 500 / 500 500 / 500 Chloride 0.9% 500 ml @ 333.333 mls/hr IV Q12H [facility] Rx#: [id number] Oral 800 / 800 480 / 480 800 / 800 Output: Void Amount 900 / 900 950 / 950 350 / 350 Other: Meal Nourishment/Supplement Breakfast Percent of Meal Consumed 100% 100% Feeding Ability Independent Stool Size Moderate Stool Color Brown Stool Consistency Soft Loose Loose # Bowel Movements 1 1 Exam: General: Bit upset this afternoon and being sick Chest: Clear, unlabored Cardiovascular: Regular, no edema Abdomen: Soft, nontender Neuro: Alert, oriented 3, nonfocal Medical - PN: Obj Da - Labs CBC & Chem 7: 09/18/17 04:20 09/18/17 04:20 Labs: Abnormal Lab Results 09/18/17 09/18/17 09/18/17 04:20 04:20 04:20 WBC 19.0 H Plt Count 635 H MPV 7.2 L Gran % 85.4 H Lymph % (Auto) 6.3 L Gran # 16.2 H Lymph # (Auto) 1.2 L Seg Neutrophils % Lymphocytes % BUN 5 L Creatinine 0.5 L Glucose Uric Acid Calcium 8.5 L GGT Lactate Dehydrogenase Albumin Albumin/Globulin Ratio Rheumatoid Factor 15 H JOSE ROBERTO Screen Pos 1:80 or greater A 09/17/17 09/17/17 09/16/17 08:10 08:10 05:05 WBC 14.8 H Plt Count 586 H MPV 7.1 L Gran % 79.8 H Lymph % (Auto) 10.9 L Gran # 11.8 H Lymph # (Auto) Seg Neutrophils % Lymphocytes % BUN 6 L 4 L Creatinine 0.5 L 0.4 L Glucose 131 H Uric Acid 1.4 L Calcium 8.4 L 8.4 L GGT 44 H Lactate Dehydrogenase 504 H Albumin 2.7 L Albumin/Globulin Ratio 0.8 L Rheumatoid Factor JOSE ROBERTO Screen 09/16/17 05:05 WBC 18.5 H Plt Count 563 H MPV 7.3 L Gran % Lymph % (Auto) Gran # Lymph # (Auto) Seg Neutrophils % 86 H Lymphocytes % 8 L BUN Creatinine Glucose Uric Acid Calcium GGT Lactate Dehydrogenase Albumin Albumin/Globulin Ratio Rheumatoid Factor JOSE ROBERTO Screen Microbiology 09/11/17 16:20 Blood Culture - Preliminary Blood Gram positive cocci Corynebacterium species Meds: Medications Acetaminophen (Tylenol) 650 mg PO Q4-6HP PRN PRN Reason: PAIN/FEVER > 101 Last Admin: 09/18/17 16:11 Dose: 650 mg Hydrocodone Bitart/Acetaminophen ([place] 10/325mg) 1 tab PO Q4-6HP PRN PRN Reason: Pain Last Admin: 09/18/17 17:41 Dose: 1 tab Albuterol/Ipratropium (Duoneb) 3 ml NEB Q4HP PRN PRN Reason: Shortness Of Breath Last Admin: 09/16/17 20:56 Dose: 3 ml Budesonide (Pulmicort) 0.5 mg NEB Q12 COUNTS INCLUDE 234 BEDS AT THE [facility] Last Admin: 09/18/17 10:46 Dose: 0.5 mg Cetirizine HCl (Zyrtec) 10 mg PO DAILY COUNTS INCLUDE 234 BEDS AT THE [facility] Last Admin: 09/18/17 08:38 Dose: 10 mg Docusate Sodium (Colace) 100 mg PO BID COUNTS INCLUDE 234 BEDS AT THE [facility] Last Admin: 09/18/17 08:39 Dose: Not Given Furosemide (Lasix) 20 mg IV BIDD COUNTS INCLUDE 234 BEDS AT THE [facility] Last Admin: 09/18/17 16:12 Dose: 20 mg Heparin Sodium (Porcine) (Heparin) 5,000 unit SQ Q12 COUNTS INCLUDE 234 BEDS AT THE [facility] Last Admin: 09/18/17 08:39 Dose: 5,000 unit Hydromorphone HCl (Dilaudid) 1 mg IV Q2HP PRN PRN Reason: PAIN LEVEL > 6 Last Admin: 09/16/17 17:39 Dose: 1 mg Magnesium Sulfate (Magnesium Sulfate) 2 gm in 50 mls @ 50 mls/hr IV UD PRN PRN Reason: MG = or < 1.7 Acetaminophen (Ofirmev) 1,000 mg in 100 mls @ 200 mls/hr IV Q6HP PRN PRN Reason: PAIN/FEVER > 101 Piperacillin Sod/Tazobactam (Sod 3.375 gm/ Dextrose) 50 mls @ 100 mls/hr IV Q6H COUNTS INCLUDE 234 BEDS AT THE [facility] Last Admin: 09/18/17 17:36 Dose: 100 mls/hr Levofloxacin (Levaquin) 750 mg in 150 mls @ 100 mls/hr IV Q24H COUNTS INCLUDE 234 BEDS AT THE [facility] Last Admin: 09/18/17 10:05 Dose: 100 mls/hr Vancomycin HCl 1,250 mg/ (Sodium Chloride) 500 mls @ 333.333 mls/hr IV Q12H COUNTS INCLUDE 234 BEDS AT THE [facility] Last Infusion: 09/18/17 11:30 Dose: Infused Omeprazole (Prilosec) 40 mg PO ACB COUNTS INCLUDE 234 BEDS AT THE [facility] Last Admin: 09/18/17 06:52 Dose: 40 mg Ondansetron HCl (Zofran) 4 mg IV Q4-6HP PRN PRN Reason: Nausea And Vomiting Methylphenidate Hcl [Quillichew Er] 30 Mg Tab 1 dose PO DAILY COUNTS INCLUDE 234 BEDS AT THE [facility] Last Admin: 09/18/17 08:39 Dose: Not Given Potassium Chloride (Klor-Con) 40 meq PO DAILYP PRN PRN Reason: K+ < 3.5 Last Admin: 09/15/17 09:32 Dose: 40 meq Potassium Citrate (Potassium Citrate) 10 meq PO QAMCC COUNTS INCLUDE 234 BEDS AT THE [facility] Last Admin: 09/18/17 08:38 Dose: 10 meq Senna/Docusate Sodium (Senna Plus Tablet) 1 tab PO HS COUNTS INCLUDE 234 BEDS AT THE [facility] Last Admin: 09/17/17 20:39 Dose: Not Given Sertraline HCl (Zoloft) 25 mg PO DAILY COUNTS INCLUDE 234 BEDS AT THE [facility] Last Admin: 09/18/17 08:38 Dose: 25 mg Sodium Chloride (Saline Flush) 10 ml IV Q8 COUNTS INCLUDE 234 BEDS AT THE [facility] Last Admin: 09/18/17 16:12 Dose: 10 ml Vancomycin HCl (Vancomycin Per Pharmacy) 1 order IV UD COUNTS INCLUDE 234 BEDS AT THE [facility] Medical - PN: A/P - Time Spent With Patient Total time spent is greater than 50% in coordination of care (as documented) at patient's floor/unit and/or counseling patient: 25 - 35 minutes - Narrative A/P Narrative: 62-year-old female with underlying COPD admitted with dyspnea and multifocal pneumonia. Subsequent with worsening hypoxic respiratory failure requiring BiPAP support. Multifocal pneumonia. Noted on CXR at admission, subsequent respiratory failure with need of BiPAP. CT w/o contrast with diffuse groundglass changes. Slowly responding to antibiotic therapy, suggest pneumonia with underlying ARDS (vs. atypical or fungal pneumonia). Appreciate pulmonary input. Collagen vascular workup has been sent. Differential includes near ARDS secondary to aspiration versus typical pneumonia versus atypical/fungal infection. Hypoxic respiratory failure slowly improving. One set of blood cultures is without growth final, other set is with corynebacterium as well as an as yet unidentified gram-positive cocci in clusters; verbally from the lab, does not appear to be staph, is slow growing and difficult to identify. Plan: Continue vancomycin, Zosyn and Levaquin, follow-up cultures and outstanding studies. Consider stopping antibiotics and monitoring and/or adding steroids to the regimen. Right chest pain. Unclear etiology, but may be M/S as was tender with palpation. Improved. No PE on CTA. Plan: Supportive care Acute hypoxic respiratory failure secondary to above. Sunday on 5 lpm. Plan: Continue supportive care, pulm consult Sepsis secondary to pneumonia. Improving, though WBC increased on Sunday. Plan: Continue to follow white count, continue with treatment of infection. COPD with exacerbation from pneumonia. No current wheezing. Plan: Continue with current regimen. Gastroesophageal reflux disease. Plan: Continue PPI. Anxiety disorder. Stable. Plan: Continue sertraline. Chronic pain with pain pump in place and DJD. Query whether this may have contributed to posterior chest pain on Sunday. Plan: Continue pain pump, acetaminophen with hydrocodone. Prophylaxis: Heparin Medical - PN: Qual - VTE Deep Vein Thrombosis/Pulmonary Embolism Present on Admission: No
[2017-09-18] MEDS: SENNOSIDES/DOCUSATE SODIUM 1 TAB TABLET PO SCH (21:40)
[2017-09-19] MEDS: PIPERACILLIN SODIUM/TAZOBACTAM 3.375 GM in DEXTROSE 5% IN WATER 50 ML IV SCH ×4 (00:18→18:23)
[2017-09-19] MEDS: HYDROcodone/APAP 10/325MG TABLET PO PRN ×3 (00:28→22:32)
[2017-09-19] MEDS: 0.9 % SODIUM CHLORIDE 10 ML SYRINGE IV SCH ×3 (05:06→20:48)
[2017-09-19 05:21] LABS: Basophils # (Auto) 0.1 K/mcL (0.0-0.3); Basophils % (Auto) 0.4 % (0.0-2.0); Eosinophils # (Auto) 0.5 K/mcL (0.0-0.7); Eosinophils % (Auto) 3.4 % (0.0-7.0); Granulocytes % (Auto) 77.4 % (38.0-78.0); Lymphocytes # (Auto) 1.7 K/mcL (1.5-4.8); Lymphocytes % (Auto) 12.1 % (15.5-49.0); Mean Cell Volume 93.5 fL (80.0-100.0); Mean Corpuscular HGB Conc 32.8 g/dL (31.0-36.0); Mean Corpuscular Hemoglobin 30.7 pg (26.0-34.0); Monocytes # (Auto) 0.9 K/mcL (0.1-0.9); Monocytes % (Auto) 6.7 % (1.0-12.0); Platelet Count 632 K/mcL (140-440); RBC 4.18 M/mcL (4.00-5.20); Red Cell Distribution Width 14.1 % (11.5-14.5)
[2017-09-19 05:48] LABS: Blood Urea Nitrogen 7 mg/dl (8-23)
[2017-09-19] MEDS: OMEPRAZOLE 20 MG CAPSULE PO SCH (07:16)
[2017-09-19] MEDS: FUROSEMIDE 20 MG/2 ML VIAL IV SCH ×2 (07:53→16:46)
[2017-09-19] MEDS: ACETAMINOPHEN 325 MG TABLET PO PRN ×2 (07:53→20:53)
[2017-09-19] MEDS: POTASSIUM CITRATE 10 MEQ TAB.XL.24H PO SCH (07:53)
[2017-09-19] MEDS: CETIRIZINE 10 MG TABLET PO SCH (09:12)
[2017-09-19] MEDS: VANCOMYCIN 1,250 MG in 0.9 % SODIUM CHLORIDE 500 ML IV SCH ×2 (09:12→20:48)
[2017-09-19] MEDS: HEPARIN 5,000 UNIT/ML VIAL SQ SCH ×2 (09:12→20:49)
[2017-09-19] MEDS: SERTRALINE 50 MG TABLET PO SCH (09:13)
[2017-09-19] MEDS: DOCUSATE SODIUM 100 MG CAPSULE PO SCH ×2 (10:42→20:49)
--- NOTE | 2017-09-19 11:17 | Internal Med Progress Note ---
Medical - PN: Subj Patient information: Note initiated : 09/19/17 at 11:14 am Service Date, if different from initiated Date: [] Patient: Zari Marroquin a 62 y/o F admitted on 09/11/17 for Shortness of Breath Fever,Nausea, Aspiration Pneum. Chief Complaint: f/u PNA Interval history: 09/11 Ms. Marroquin is a 62 year old F with a history of oxygen dependent COPD who until recently was an active smoker and quit smoking May. Patient has been living alone independently however the last 3 days patient has gotten progressively short of breath with increasing cough and sputum production. Patient also complains of associated fever but denies chest pain or weight loss. She denies sick contacts. Denies changes in medications. With worsening symptoms along with orthopnea she presents to the ER. Initial workup was significant for multifocal pneumonia on chest imaging along with white count 19,000.hospitalist service consulted At the time of evaluation patient is alert and oriented. She is moderately short of breath. On 3 L oxygen. Was able to endorse history as above. She denies shaking chills and drenching sweats, diarrhea or rash photophobia and neck stiffness. She denies arthralgia myalgia. She recently had her pain pump changed. gen were removed yesterday 09/12- patient patient's condition has significantly deteriorated over the last 12 hours. currently on 6 L oxygen mask. Diaphoretic. Labored breathing, tachypnea. Stat ABGs 7.53/33/60 on 5 L oxygen. Lactic acid 1.1. Chest CT pending. white count down from 18.7->16.6. Echocardiogram pending. strep pneumo and mycoplasma negative. On broad antibiotic coverage. Transfer to ICU in light of progressive hypoxic respiratory failure with a large AA gradient and a V/Q mismatch. start positive pressure ventilation.Further treatment will depend on CT findings. Sister at bedside. 09/13- patient doing remarkably better on noninvasive ventilation. Overnight slept well on BiPAP. White count down from 16.6-16.1. improving respiratory status.on 40% FiO2 BiPAP .B D glucan pending. secondary to worsening noticed start sulfamethoxazole. fungal cultures pending. Question bacterial pneumonia in light of normal pro calcitonin. continue conservative management/empiric antibiotic coverage. 09/14-patient doing better. Was on BiPAP all night. Currently on 6 L oxygen. Able to talk in full sentences. diffuse groundglass opacities on CT suggestive of ARDS versus opportunistic infection. However clinical improvement noted with existing treatment. transitioning to medical for today. White count down from 18.7-15.1. Continue gentle diuresis. potassium 3.1 on replacement. repeat chest imaging in 24 hours 09/15-Continues to improve. Remains on 6 lpm O2, but speaking in full sentences and respirations are unlabored. Feels tired. WBC continues to decline. 09/16-white count increased to 18,000 today. Had the onset of severe left scapular pain. Worse with respirations, also worse with movement. Was tender over that area on exam. Radiograph actually with improving infiltrates, no evidence of pneumothorax. Later in the afternoon, symptoms had improved. 09/17-Still on 6-7 lpm of oxygen. Right scapula pain improved. Dyspnea stable, no sputum production. WBC down to 14K from 18K. Given persistent hypoxema with generally clear lung exam and clinical improvement, CTA obtained (note: iodine allergy is topical-dermatitis, not to IV contrast). Ground glass opacities appear worsening. Have asked Dr. Dseouza to see for pulmonary. 09/18-Oxygen requirements bit better, down to 4-5 L of oxygen. Still with intermittent right scapula pain. No sputum production. Collagen-vascular labs sent, are pending. White count up to 19,000. 09/19-on 4.5 L of oxygen today. Continues to slowly improve. White count has declined. No productive sputum. Right-sided back pain improved. Discussed with Dr. Desouza, recommended 10 day course of IV antibiotics. Blood culture results, still preliminary, but in one set showing micrococcus and corynebacterium consistent with contaminant. Other set of blood cultures without growth to 5 days. - Constitutional Vitals: Vital Signs Temp Pulse Resp BP Pulse Ox 99.7 F H 95 H 14 117/74 91 09/19/17 08:38 09/19/17 07:52 09/19/17 07:52 09/19/17 07:52 09/19/17 07:52 Period Temp Pulse Resp BP Sys/Gomes Pulse Ox Last 24 Hr 97.8 F-99.7 F 70-95 14-24 106-126/57-80 91-97 Intake and Output 09/18/17 09/19/17 09/19/17 21:59 05:59 13:59 Intake Total 850 / 850 725 / 725 Output Total 350 / 350 Balance 500 / 500 725 / 725 Weight 147 lb Intake & Output: Intake & Output 09/18/17 09/19/17 09/19/17 21:59 05:59 13:59 Intake Total 850 / 850 725 / 725 Output Total 350 / 350 Balance 500 / 500 725 / 725 Weight 147 lb Intake: IV 50 / 50 550 / 550 Zosyn 3.375 gm In Dextrose 5% 50 / 50 50 / 50 in Water 50 ml @ 100 mls/hr IV Q6H [facility] Rx#:[id number] Vancomycin 1,250 mg In Sodium 500 / 500 Chloride 0.9% 500 ml @ 333.333 mls/hr IV Q12H [facility] Rx#: [id number] Oral 800 / 800 175 / 175 Output: Void Amount 350 / 350 Other: Stool Consistency Loose Exam: General: In no acute distress Chest: Left basilar faint rales Cardiovascular: Regular, trace lower extremity edema Abdomen: Soft, nontender Neuro: Alert, oriented, nonfocal Medical - PN: Obj Da - Labs CBC & Chem 7: 09/19/17 04:20 09/19/17 04:20 Labs: Abnormal Lab Results 09/19/17 09/19/17 09/18/17 04:20 04:20 04:20 WBC 13.9 H Plt Count 632 H MPV 7.1 L Gran % Lymph % (Auto) 12.1 L Gran # 10.8 H Lymph # (Auto) BUN 7 L Creatinine 0.5 L Glucose Calcium 8.5 L Rheumatoid Factor 15 H JOSE ROBERTO Screen Pos 1:80 or greater A 09/18/17 09/18/17 09/17/17 04:20 04:20 08:10 WBC 19.0 H Plt Count 635 H MPV 7.2 L Gran % 85.4 H Lymph % (Auto) 6.3 L Gran # 16.2 H Lymph # (Auto) 1.2 L BUN 5 L 6 L Creatinine 0.5 L 0.5 L Glucose 131 H Calcium 8.5 L 8.4 L Rheumatoid Factor JOSE ROBERTO Screen 09/17/17 08:10 WBC 14.8 H Plt Count 586 H MPV 7.1 L Gran % 79.8 H Lymph % (Auto) 10.9 L Gran # 11.8 H Lymph # (Auto) BUN Creatinine Glucose Calcium Rheumatoid Factor JOSE ROBERTO Screen Meds: Medications Acetaminophen (Tylenol) 650 mg PO Q4-6HP PRN PRN Reason: PAIN/FEVER > 101 Last Admin: 09/19/17 07:53 Dose: 650 mg Hydrocodone Bitart/Acetaminophen ([place] 10/325mg) 1 tab PO Q4-6HP PRN PRN Reason: Pain Last Admin: 09/19/17 09:25 Dose: 1 tab Albuterol/Ipratropium (Duoneb) 3 ml NEB Q4HP PRN PRN Reason: Shortness Of Breath Last Admin: 09/16/17 20:56 Dose: 3 ml Budesonide (Pulmicort) 0.5 mg NEB Q12 [facility] Last Admin: 09/18/17 21:04 Dose: 0.5 mg Cetirizine HCl (Zyrtec) 10 mg PO DAILY [facility] Last Admin: 09/19/17 09:12 Dose: 10 mg Docusate Sodium (Colace) 100 mg PO BID [facility] Last Admin: 09/19/17 10:42 Dose: Not Given Furosemide (Lasix) 20 mg IV BIDD [facility] Last Admin: 09/19/17 07:53 Dose: 20 mg Heparin Sodium (Porcine) (Heparin) 5,000 unit SQ Q12 [facility] Last Admin: 09/19/17 09:12 Dose: 5,000 unit Hydromorphone HCl (Dilaudid) 1 mg IV Q2HP PRN PRN Reason: PAIN LEVEL > 6 Last Admin: 09/16/17 17:39 Dose: 1 mg Magnesium Sulfate (Magnesium Sulfate) 2 gm in 50 mls @ 50 mls/hr IV UD PRN PRN Reason: MG = or < 1.7 Acetaminophen (Ofirmev) 1,000 mg in 100 mls @ 200 mls/hr IV Q6HP PRN PRN Reason: PAIN/FEVER > 101 Piperacillin Sod/Tazobactam (Sod 3.375 gm/ Dextrose) 50 mls @ 100 mls/hr IV Q6H [facility] Last Admin: 09/19/17 05:06 Dose: 100 mls/hr Levofloxacin (Levaquin) 750 mg in 150 mls @ 100 mls/hr IV Q24H [facility] Last Admin: 09/18/17 10:05 Dose: 100 mls/hr Vancomycin HCl 1,250 mg/ (Sodium Chloride) 500 mls @ 333.333 mls/hr IV Q12H [facility] Last Admin: 09/19/17 09:12 Dose: 333 mls/hr Omeprazole (Prilosec) 40 mg PO ACB [facility] Last Admin: 09/19/17 07:16 Dose: 40 mg Ondansetron HCl (Zofran) 4 mg IV Q4-6HP PRN PRN Reason: Nausea And Vomiting Methylphenidate Hcl [Quillichew Er] 30 Mg Tab 1 dose PO DAILY [facility] Last Admin: 09/19/17 09:01 Dose: Not Given Potassium Chloride (Klor-Con) 40 meq PO DAILYP PRN PRN Reason: K+ < 3.5 Last Admin: 09/15/17 09:32 Dose: 40 meq Potassium Citrate (Potassium Citrate) 10 meq PO QAMCC [facility] Last Admin: 09/19/17 07:53 Dose: 10 meq Senna/Docusate Sodium (Senna Plus Tablet) 1 tab PO HS [facility] Last Admin: 09/18/17 21:40 Dose: 1 tab Sertraline HCl (Zoloft) 25 mg PO DAILY [facility] Last Admin: 09/19/17 09:13 Dose: 25 mg Sodium Chloride (Saline Flush) 10 ml IV Q8 [facility] Last Admin: 09/19/17 05:06 Dose: 10 ml Vancomycin HCl (Vancomycin Per Pharmacy) 1 order IV UD [facility] Medical - PN: A/P - Time Spent With Patient Total time spent is greater than 50% in coordination of care (as documented) at patient's floor/unit and/or counseling patient: 25 - 35 minutes - Narrative A/P Narrative: 62-year-old female with underlying COPD admitted with dyspnea and multifocal pneumonia. Subsequent with worsening hypoxic respiratory failure requiring BiPAP support. Multifocal pneumonia. Noted on CXR at admission, subsequent respiratory failure with need of BiPAP. CT w/o contrast with diffuse ground-glass changes. Slowly responding to antibiotic therapy, suggest pneumonia with underlying ARDS (vs. atypical or fungal pneumonia). Appreciate pulmonary input. Collagen vascular workup has been sent. Differential includes near ARDS secondary to aspiration versus typical pneumonia versus atypical/fungal infection. Hypoxic respiratory failure slowly improving. One set of blood cultures is without growth final, other set consistent with contaminant (micrococcus and corynebacterium). Likely has some underlying bronchiectasis. Plan: Continue vancomycin, Zosyn and Levaquin Day 8 of abx. Pulmonary recommends 10d course. Would consider monitoring after stopping for relapse. Right chest pain. Unclear etiology, but may be M/S as was tender with palpation. Improved. No PE on CTA. Plan: Supportive care Acute hypoxic respiratory failure secondary to above. Slowly improving. Plan: Continue supportive care, pulm consult Sepsis secondary to pneumonia. Improving, WBC decreased Wed. Plan: Continue to follow white count, continue with treatment of infection. COPD with exacerbation from pneumonia. No current wheezing. Plan: Continue with current regimen. Gastroesophageal reflux disease. Plan: Continue PPI. Anxiety disorder. Stable. Plan: Continue sertraline. Chronic pain with pain pump in place and DJD. Query whether this may have contributed to posterior chest pain on Sunday. Plan: Continue pain pump, acetaminophen with hydrocodone. Prophylaxis: Heparin Medical - PN: Qual - VTE Deep Vein Thrombosis/Pulmonary Embolism Present on Admission: No
[2017-09-19] MEDS: LEVOFLOXACIN 750 MG/150 ML BAG IV SCH (11:26)
[2017-09-19] MEDS: BUDESONIDE 0.5 MG/2 ML AMPUL.NEB NEB SCH (15:50)
[2017-09-19] MEDS: SODIUM CHLORIDE NASAL 1 SPRAY BOTTLE NAS PRN ×2 (16:46→22:31)
[2017-09-19] MEDS: SENNOSIDES/DOCUSATE SODIUM 1 TAB TABLET PO SCH (20:48)
[2017-09-20] MEDS: PIPERACILLIN SODIUM/TAZOBACTAM 3.375 GM in DEXTROSE 5% IN WATER 50 ML IV SCH ×5 (00:21→23:22)
[2017-09-20] MEDS: BUDESONIDE 0.5 MG/2 ML AMPUL.NEB NEB SCH ×3 (00:22→21:03)
[2017-09-20] MEDS: 0.9 % SODIUM CHLORIDE 10 ML SYRINGE IV SCH ×3 (05:34→20:13)
[2017-09-20 06:35] LABS: Blood Urea Nitrogen 5 mg/dl (8-23)
[2017-09-20 06:48] LABS: Basophils # (Auto) 0.1 K/mcL (0.0-0.3); Basophils % (Auto) 0.6 % (0.0-2.0); Eosinophils # (Auto) 0.5 K/mcL (0.0-0.7); Eosinophils % (Auto) 4.4 % (0.0-7.0); Granulocytes % (Auto) 72.6 % (38.0-78.0); Lymphocytes # (Auto) 1.6 K/mcL (1.5-4.8); Lymphocytes % (Auto) 15.6 % (15.5-49.0); Mean Cell Volume 93.3 fL (80.0-100.0); Mean Corpuscular HGB Conc 32.4 g/dL (31.0-36.0); Mean Corpuscular Hemoglobin 30.2 pg (26.0-34.0); Monocytes # (Auto) 0.7 K/mcL (0.1-0.9); Monocytes % (Auto) 6.8 % (1.0-12.0); Platelet Count 587 K/mcL (140-440); RBC 4.51 M/mcL (4.00-5.20); Red Cell Distribution Width 14.3 % (11.5-14.5)
[2017-09-20] MEDS: OMEPRAZOLE 20 MG CAPSULE PO SCH (07:31)
[2017-09-20] MEDS: POTASSIUM CITRATE 10 MEQ TAB.XL.24H PO SCH (07:32)
[2017-09-20] MEDS: FUROSEMIDE 20 MG/2 ML VIAL IV SCH ×2 (07:35→15:49)
[2017-09-20] MEDS: HEPARIN 5,000 UNIT/ML VIAL SQ SCH ×2 (08:30→20:13)
[2017-09-20] MEDS: SERTRALINE 50 MG TABLET PO SCH (08:34)
[2017-09-20] MEDS: CETIRIZINE 10 MG TABLET PO SCH (08:38)
[2017-09-20] MEDS: LEVOFLOXACIN 750 MG/150 ML BAG IV SCH (09:03)
[2017-09-20] MEDS: IPRATROPIUM/ALBUTEROL 3 ML AMPUL.NEB NEB PRN (09:23)
[2017-09-20] MEDS: VANCOMYCIN 1,250 MG in 0.9 % SODIUM CHLORIDE 500 ML IV SCH (11:28)
[2017-09-20] MEDS ORDERED: SERTRALINE 50 MG TABLET PO ONE (12:30)
[2017-09-20] MEDS: DOCUSATE SODIUM 100 MG CAPSULE PO SCH ×2 (13:08→20:13)
[2017-09-20 13:33] LABS: Complement C3 155.9 mg/dl (90-180)
--- NOTE | 2017-09-20 13:47 | Internal Med Progress Note ---
Medical - PN: Subj Patient information: Note initiated : 09/20/17 at 1:43 pm Service Date, if different from initiated Date: [] Patient: Zari Marroquin a 62 y/o F admitted on 09/11/17 for Shortness of Breath Fever,Nausea, Aspiration Pneum. Chief Complaint: [] Interval history: 09/11 Ms. Marroquin is a 62 year old F with a history of oxygen dependent COPD who until recently was an active smoker and quit smoking May. Patient has been living alone independently however the last 3 days patient has gotten progressively short of breath with increasing cough and sputum production. Patient also complains of associated fever but denies chest pain or weight loss. She denies sick contacts. Denies changes in medications. With worsening symptoms along with orthopnea she presents to the ER. Initial workup was significant for multifocal pneumonia on chest imaging along with white count 19,000.hospitalist service consulted At the time of evaluation patient is alert and oriented. She is moderately short of breath. On 3 L oxygen. Was able to endorse history as above. She denies shaking chills and drenching sweats, diarrhea or rash photophobia and neck stiffness. She denies arthralgia myalgia. She recently had her pain pump changed. gen were removed yesterday 09/12- patient patient's condition has significantly deteriorated over the last 12 hours. currently on 6 L oxygen mask. Diaphoretic. Labored breathing, tachypnea. Stat ABGs 7.53/33/60 on 5 L oxygen. Lactic acid 1.1. Chest CT pending. white count down from 18.7->16.6. Echocardiogram pending. strep pneumo and mycoplasma negative. On broad antibiotic coverage. Transfer to ICU in light of progressive hypoxic respiratory failure with a large AA gradient and a V/Q mismatch. start positive pressure ventilation.Further treatment will depend on CT findings. Sister at bedside. 09/13- patient doing remarkably better on noninvasive ventilation. Overnight slept well on BiPAP. White count down from 16.6-16.1. improving respiratory status.on 40% FiO2 BiPAP .B D glucan pending. secondary to worsening noticed start sulfamethoxazole. fungal cultures pending. Question bacterial pneumonia in light of normal pro calcitonin. continue conservative management/empiric antibiotic coverage. 09/14-patient doing better. Was on BiPAP all night. Currently on 6 L oxygen. Able to talk in full sentences. diffuse groundglass opacities on CT suggestive of ARDS versus opportunistic infection. However clinical improvement noted with existing treatment. transitioning to medical for today. White count down from 18.7-15.1. Continue gentle diuresis. potassium 3.1 on replacement. repeat chest imaging in 24 hours 09/15-Continues to improve. Remains on 6 lpm O2, but speaking in full sentences and respirations are unlabored. Feels tired. WBC continues to decline. 09/16-white count increased to 18,000 today. Had the onset of severe left scapular pain. Worse with respirations, also worse with movement. Was tender over that area on exam. Radiograph actually with improving infiltrates, no evidence of pneumothorax. Later in the afternoon, symptoms had improved. 09/17-Still on 6-7 lpm of oxygen. Right scapula pain improved. Dyspnea stable, no sputum production. WBC down to 14K from 18K. Given persistent hypoxema with generally clear lung exam and clinical improvement, CTA obtained (note: iodine allergy is topical-dermatitis, not to IV contrast). Ground glass opacities appear worsening. Have asked Dr. Desouza to see for pulmonary. 09/18-Oxygen requirements bit better, down to 4-5 L of oxygen. Still with intermittent right scapula pain. No sputum production. Collagen-vascular labs sent, are pending. White count up to 19,000. 09/19-on 4.5 L of oxygen today. Continues to slowly improve. White count has declined. No productive sputum. Right-sided back pain improved. Discussed with Dr. Desouza, recommended 10 day course of IV antibiotics. Blood culture results, still preliminary, but in one set showing micrococcus and corynebacterium consistent with contaminant. Other set of blood cultures without growth to 5 days. 09/20 She is seen and examined no acute overnight events. Patient notes that she is emotionally feeling like a wreck. Noted that her dose of Zoloft was not adequate. She was getting 25 mg when she supposed to be on 200 mg. Dosing adjusted. I believe today is day 9 of antibiotics. She is on 3.5 L of oxygen today. She was sitting comfortably in bed able to speak full sentences not in respiratory distress. Labs reviewed WBC has normalized to look lites are stable. Fungal panel is still pending, unlikely that that is etiology given that she has clinically responded to antibiotics. Likely aspiration pneumonitis. Continue to monitor anticipate discharge tomorrow if remains stable Pertinent ROS: Denies headache, dizziness Denies chest pain, palpitations Denies cough or shortness of breath Denies abdominal pain, nausea or vomiting. - Constitutional Vitals: Vital Signs Temp Pulse Resp BP Pulse Ox 98.2 F 86 14 103/63 95 09/20/17 11:46 09/20/17 11:46 09/20/17 11:46 09/20/17 11:46 09/20/17 11:46 Period Temp Pulse Resp BP Sys/Gomes Pulse Ox Last 24 Hr 97.9 F-99.8 F 78-99 14-16 103-123/63-76 91-95 Intake and Output 09/19/17 09/20/17 09/20/17 21:59 05:59 13:59 Intake Total 411 / 411 850 / 850 50 / 50 Output Total 800 / 800 1500 / 1500 550 / 550 Balance -389 / -389 -650 / -650 -500 / -500 Weight 148 lb 3.2 oz Intake & Output: Intake & Output 09/19/17 09/20/17 09/20/17 21:59 05:59 13:59 Intake Total 411 / 411 850 / 850 50 / 50 Output Total 800 / 800 1500 / 1500 550 / 550 Balance -389 / -389 -650 / -650 -500 / -500 Weight 148 lb 3.2 oz Intake: IV 50 / 50 550 / 550 50 / 50 Zosyn 3.375 gm In Dextrose 5% 50 / 50 50 / 50 50 / 50 in Water 50 ml @ 100 mls/hr IV Q6H DARIANA Rx#:[id number] Vancomycin 1,250 mg In Sodium 500 / 500 Chloride 0.9% 500 ml @ 333.333 mls/hr IV Q12H DARIANA Rx#: [id number] Oral 360 / 360 300 / 300 Tube Feeding Output: Void Amount 800 / 800 1500 / 1500 550 / 550 Other: Meal Dinner Percent of Meal Consumed 75% Feeding Ability Independent Stool Color Brown Brown Stool Consistency Loose Loose # Voids 2 1 # Bowel Movements 1 Exam: Constitutional; Afebrile, cooperative, alert, not in distress. Eyes- No icterus, , No periorbital swelling Ears- Ext ear normal, hearing normal to conversation. Neck- Midline trachea, supple Respiratory system: Air Entry equal on both sides, No crackles or wheezing, no rhonchi. CVS- Rate rhythm regular, S1,S2 heard, no gallop, no rub. Abdomen- Soft nontender abdomen, no organomegaly, no tenderness, no guarding or rigidity, OFFSHORE DIVER- AOOx3, moving all extremities, no gross focal deficit noted. Medical - PN: Obj Da - Labs CBC & Chem 7: 09/20/17 04:20 09/20/17 04:20 Labs: Abnormal Lab Results 09/20/17 09/20/17 09/19/17 04:20 04:20 04:20 WBC Plt Count 587 H MPV 6.9 L Gran % Lymph % (Auto) Gran # Lymph # (Auto) Carbon Dioxide 21 L Anion Gap 17.0 H BUN 5 L 7 L Creatinine 0.5 L 0.5 L Calcium 8.5 L Rheumatoid Factor JOSE ROBERTO Screen 09/19/17 09/18/17 09/18/17 04:20 04:20 04:20 WBC 13.9 H Plt Count 632 H MPV 7.1 L Gran % Lymph % (Auto) 12.1 L Gran # 10.8 H Lymph # (Auto) Carbon Dioxide Anion Gap BUN 5 L Creatinine 0.5 L Calcium 8.5 L Rheumatoid Factor 15 H JOSE ROBERTO Screen Pos 1:80 or greater A 09/18/17 04:20 WBC 19.0 H Plt Count 635 H MPV 7.2 L Gran % 85.4 H Lymph % (Auto) 6.3 L Gran # 16.2 H Lymph # (Auto) 1.2 L Carbon Dioxide Anion Gap BUN Creatinine Calcium Rheumatoid Factor JOSE ROBERTO Screen Meds: Medications Acetaminophen (Tylenol) 650 mg PO Q4-6HP PRN PRN Reason: PAIN/FEVER > 101 Last Admin: 09/19/17 20:53 Dose: 650 mg Hydrocodone Bitart/Acetaminophen ([place] 10/325mg) 1 tab PO Q4-6HP PRN PRN Reason: Pain Last Admin: 09/19/17 22:32 Dose: 1 tab Albuterol/Ipratropium (Duoneb) 3 ml NEB Q4HP PRN PRN Reason: Shortness Of Breath Last Admin: 09/20/17 09:23 Dose: 3 ml Budesonide (Pulmicort) 0.5 mg NEB Q12 DARIANA Last Admin: 09/20/17 09:23 Dose: 0.5 mg Cetirizine HCl (Zyrtec) 10 mg PO DAILY [facility] Last Admin: 09/20/17 08:38 Dose: 10 mg Docusate Sodium (Colace) 100 mg PO BID [facility] Last Admin: 09/20/17 13:08 Dose: Not Given Furosemide (Lasix) 20 mg IV BIDD [facility] Last Admin: 09/20/17 07:35 Dose: 20 mg Heparin Sodium (Porcine) (Heparin) 5,000 unit SQ Q12 [facility] Last Admin: 09/20/17 08:30 Dose: 5,000 unit Hydromorphone HCl (Dilaudid) 1 mg IV Q2HP PRN PRN Reason: PAIN LEVEL > 6 Last Admin: 09/16/17 17:39 Dose: 1 mg Magnesium Sulfate (Magnesium Sulfate) 2 gm in 50 mls @ 50 mls/hr IV UD PRN PRN Reason: MG = or < 1.7 Acetaminophen (Ofirmev) 1,000 mg in 100 mls @ 200 mls/hr IV Q6HP PRN PRN Reason: PAIN/FEVER > 101 Piperacillin Sod/Tazobactam (Sod 3.375 gm/ Dextrose) 50 mls @ 100 mls/hr IV Q6H [facility] Last Infusion: 09/20/17 06:19 Dose: Infused Levofloxacin (Levaquin) 750 mg in 150 mls @ 100 mls/hr IV Q24H [facility] Last Admin: 09/20/17 09:03 Dose: 100 mls/hr Vancomycin HCl 1,500 mg/ (Sodium Chloride) 500 mls @ 333.3 mls/hr IV Q24H [facility] Omeprazole (Prilosec) 40 mg PO ACB [facility] Last Admin: 09/20/17 07:31 Dose: 40 mg Ondansetron HCl (Zofran) 4 mg IV Q4-6HP PRN PRN Reason: Nausea And Vomiting Methylphenidate Hcl [Quillichew Er] 30 Mg Tab 1 dose PO DAILY [facility] Last Admin: 09/20/17 13:08 Dose: Not Given Potassium Chloride (Klor-Con) 40 meq PO DAILYP PRN PRN Reason: K+ < 3.5 Last Admin: 09/15/17 09:32 Dose: 40 meq Potassium Citrate (Potassium Citrate) 10 meq PO QAMCC [facility] Last Admin: 09/20/17 07:32 Dose: 10 meq Senna/Docusate Sodium (Senna Plus Tablet) 1 tab PO HS [facility] Last Admin: 09/19/17 20:48 Dose: Not Given Sertraline HCl (Zoloft) 25 mg PO DAILY [facility] Stop: 09/21/17 09:00 Last Admin: 09/20/17 08:34 Dose: 25 mg Sertraline HCl (Zoloft) 200 mg PO DAILY [facility] Sodium Chloride (Saline Flush) 10 ml IV Q8 [facility] Last Admin: 09/20/17 05:34 Dose: 10 ml Sodium Chloride ([place] Nasal) 2 spray KAELYN Q4HP PRN PRN Reason: Congestion Last Admin: 09/19/17 22:31 Dose: 2 spray Vancomycin HCl (Vancomycin Per Pharmacy) 1 order IV UD [facility] Medical - PN: A/P - Time Spent With Patient Total time spent is greater than 50% in coordination of care (as documented) at patient's floor/unit and/or counseling patient: - Narrative A/P Narrative: 62-year-old female with underlying COPD admitted with dyspnea and multifocal pneumonia. Subsequent with worsening hypoxic respiratory failure requiring BiPAP support. Multifocal pneumonia. Noted on CXR at admission, subsequent respiratory failure with need of BiPAP. CT w/o contrast with diffuse ground-glass changes. Slowly responding to antibiotic therapy, suggest pneumonia with underlying ARDS (vs. atypical or fungal pneumonia). Appreciate pulmonary input. Collagen vascular workup has been sent. Differential includes near ARDS secondary to aspiration versus typical pneumonia versus atypical/fungal infection. Hypoxic respiratory failure slowly improving. One set of blood cultures is without growth final, other set consistent with contaminant (micrococcus and corynebacterium). Likely has some underlying bronchiectasis. Plan: Continue vancomycin, Zosyn and Levaquin Day 9 of abx. Pulmonary recommends 10d course. Would consider monitoring after stopping for relapse. She will likely be at a rehab facility. Right chest pain. Unclear etiology, but may be M/S as was tender with palpation. Improved. No PE on CTA. Plan: Supportive care Acute hypoxic respiratory failure secondary to above. Slowly improving. Plan: Continue supportive care, pulm consult appreciated. On 3.5L: on oxygen. wean off as tolerated. Pt has used oxygen in the past at home. Sepsis secondary to pneumonia. Improving, wbc normal now. Plan: Continue to follow white count, continue with treatment of infection. COPD with exacerbation from pneumonia. No current wheezing. Plan: Continue with current regimen. Gastroesophageal reflux disease. Plan: Continue PPI. Anxiety disorder. Stable. Plan: Continue sertraline, increase dose to 200mg which is her home dose. Chronic pain with pain pump in place and DJD. Query whether this may have contributed to posterior chest pain on Sunday. Plan: Continue pain pump, acetaminophen with hydrocodone. Prophylaxis: Heparin Medical - PN: Qual - VTE Deep Vein Thrombosis/Pulmonary Embolism Present on Admission: No
[2017-09-20] MEDS: HYDROcodone/APAP 10/325MG TABLET PO PRN (20:12)
[2017-09-20] MEDS: SENNOSIDES/DOCUSATE SODIUM 1 TAB TABLET PO SCH (20:13)
[2017-09-20] MEDS: ACETAMINOPHEN 325 MG TABLET PO PRN (23:24)
[2017-09-21] MEDS: HYDROcodone/APAP 10/325MG TABLET PO PRN ×2 (03:12→07:37)
[2017-09-21] MEDS: SODIUM CHLORIDE NASAL 1 SPRAY BOTTLE NAS PRN (03:31)
[2017-09-21] MEDS: PIPERACILLIN SODIUM/TAZOBACTAM 3.375 GM in DEXTROSE 5% IN WATER 50 ML IV SCH (05:37)
[2017-09-21] MEDS: 0.9 % SODIUM CHLORIDE 10 ML SYRINGE IV SCH (05:37)
[2017-09-21 06:20] LABS: Basophils # (Auto) 0 K/mcL (0.0-0.3); Basophils % (Auto) 0.5 % (0.0-2.0); Eosinophils # (Auto) 0.3 K/mcL (0.0-0.7); Granulocytes % (Auto) 62.4 % (38.0-78.0); Lymphocytes % (Auto) 23.5 % (15.5-49.0); Mean Cell Volume 93.7 fL (80.0-100.0); Mean Corpuscular HGB Conc 32.1 g/dL (31.0-36.0); Mean Corpuscular Hemoglobin 30.1 pg (26.0-34.0); Monocytes # (Auto) 0.8 K/mcL (0.1-0.9); Monocytes % (Auto) 9.6 % (1.0-12.0); Platelet Count 645 K/mcL (140-440); RBC 4.29 M/mcL (4.00-5.20); Red Cell Distribution Width 14.5 % (11.5-14.5)
[2017-09-21 06:47] LABS: ALT/SGPT 34 U/l (0-40); Albumin 2.8 gm/dL (3.2-5.2); Albumin/Globulin Ratio 0.8 (1.0-2.3); Alkaline Phosphatase 54 U/L (39-117); Bilirubin,Direct < 0.2 mg/dL (0.0-0.3); Blood Urea Nitrogen 6 mg/dl (8-23); Gamma Glutamyl Transpeptidase 37 U/L (5-36); Uric Acid 2.9 mg/dL (2.5-8.0)
[2017-09-21] MEDS: OMEPRAZOLE 20 MG CAPSULE PO SCH (07:36)
[2017-09-21] MEDS: POTASSIUM CITRATE 10 MEQ TAB.XL.24H PO SCH (07:37)
[2017-09-21 07:50] LABS: Erythrocyte Sedimentation Rate 58 mm/hr (0-20)
--- NOTE | 2017-09-21 08:59 | XRay Report ---
HISTORY: Reason for Exam:shortness of breath fever and aspiration pneumonia FINDINGS: There are moderately severe diffuse infiltrates throughout both lungs. There is no lobar consolidation. The lung volumes remain normal. There is no pleural effusion. The nodular densities seen on the prior chest CT done on 09/17/17 cannot be clearly identified on this portable chest x-ray. Overall there has been no change in appearance of the lungs. IMPRESSION: Persistent widespread infiltrates throughout both lungs with little change Interpreted and Authenticated by: Tyron Santana 09/21/17
[2017-09-21] MEDS ORDERED: SERTRALINE 100 MG TABLET PO SCH (09:00)
[2017-09-21] MEDS ORDERED: VANCOMYCIN 1,500 MG in 0.9 % SODIUM CHLORIDE 500 ML IV SCH (09:00)
[2017-09-21] MEDS: HEPARIN 5,000 UNIT/ML VIAL SQ SCH (09:04)
[2017-09-21] MEDS: CETIRIZINE 10 MG TABLET PO SCH (09:10)
[2017-09-21] MEDS: SERTRALINE 50 MG TABLET PO SCH (09:11)
[2017-09-21] MEDS: FUROSEMIDE 20 MG/2 ML VIAL IV SCH (09:22)
[2017-09-21] MEDS: BUDESONIDE 0.5 MG/2 ML AMPUL.NEB NEB SCH (09:50)
--- NOTE | 2017-09-21 10:18 | Discharge Summary ---
Medical - DS: Prov Patient information: Note initiated : 09/21/17 at 10:15 am Service Date, if different from initiated Date: [] Patient: Zari Marroquin 62 y/o F admitted on 09/11/17 for Shortness of Breath Fever,Nausea, Aspiration Pneum. Chief Complaint: [] Date of admission: 09/11/17 18:20 Discharge date: 09/21/17 Primary care physician: Earnestine Virk Admitting clinician: Aubrey Sharma Consults: 09/11/17 17:09 Consult to Physician [CONS] Stat Comment: Consulting Provider: Aubrey Sharma Reason For Exam: Physician to Consult Discharging clinician: Nirali Brewster Medical - DS: Meds - Discharge Medications Prescriptions: HYDROcodone/ACETAMINOPHEN [Hydrocodon-Acetaminophn 10-325] 1 each PO Q6HP PRN # 40 tab PRN Reason: Pain Levofloxacin 750 mg PO DAILY #4 tab Methylphenidate HCl [Quillichew ER] 30 mg PO DAILY #30 tab.cbp24h Active and Home Medications: Home Medications Estradiol [Estrace] 1 mg PO DAILY 08/23/17 [History Confirmed 09/11/17 Last Taken 09/08/17 19:00] Furosemide [Lasix] 20 mg PO DAILY 08/23/17 [History Confirmed 09/11/17 Last Taken 09/09/17 10:00] HYDROcodone/ACETAMINOPHEN [Hydrocodon-Acetaminophn 10-325] 1 each PO PRN PRN 10/05 [History Confirmed 09/11/17 Last Taken 09/09/17 22:00] Methylphenidate HCl [Quillichew ER] 30 mg PO DAILY 08/23/17 [History Confirmed 09/11/17 Last Taken 09/04/17 10:00] Omeprazole [PriLOSEC] 40 mg PO ACB 08/23/17 [History Confirmed 09/11/17 Last Taken 09/10/17 22:00] Potassium Citrate [Urocit-K] 10 meq PO DAILY 08/23/17 [History Confirmed Last Taken 09/09/17 10:00] Sertraline [Zoloft] 200 mg PO DAILY 08/29/17 [History Confirmed 09/20/17 Last Taken 09/08/17 22:00] Medical - DS: Hosp Hospital course: Ms. Marroquin is a 62 year old F with a history of oxygen dependent COPD who until recently was an active smoker and quit smoking May. Patient has been living alone independently however the last 3 days patient has gotten progressively short of breath with increasing cough and sputum production. Patient also complains of associated fever but denied chest pain or weight loss. She denies sick contacts. Denies changes in medications. With worsening symptoms along with orthopnea she presented to the ER. Initial workup was significant for multifocal pneumonia on chest imaging along with white count 19,000.hospitalist service consulted 09/12- patient patient's condition has significantly deteriorated over the last 12 hours. currently on 6 L oxygen mask. Diaphoretic. Labored breathing, tachypnea. Stat ABGs 7.53/33/60 on 5 L oxygen. Lactic acid 1.1. Chest CT pending. white count down from 18.7->16.6. Echocardiogram pending. strep pneumo and mycoplasma negative. On broad antibiotic coverage. Transfer to ICU in light of progressive hypoxic respiratory failure with a large AA gradient and a V/Q mismatch. start positive pressure ventilation.Further treatment will depend on CT findings. Sister at bedside. 09/13- patient doing remarkably better on noninvasive ventilation. Overnight slept well on BiPAP. White count down from 16.6-16.1. improving respiratory status.on 40% FiO2 BiPAP .B D glucan pending. secondary to worsening noticed start sulfamethoxazole. fungal cultures pending. Question bacterial pneumonia in light of normal pro calcitonin. continue conservative management/empiric antibiotic coverage. 09/14-patient doing better. Was on BiPAP all night. Currently on 6 L oxygen. Able to talk in full sentences. diffuse groundglass opacities on CT suggestive of ARDS versus opportunistic infection. However clinical improvement noted with existing treatment. transitioning to medical for today. White count down from 18.7-15.1. Continue gentle diuresis. potassium 3.1 on replacement. repeat chest imaging in 24 hours 09/15-Continues to improve. Remains on 6 lpm O2, but speaking in full sentences and respirations are unlabored. Feels tired. WBC continues to decline. 09/16-white count increased to 18,000 today. Had the onset of severe left scapular pain. Worse with respirations, also worse with movement. Was tender over that area on exam. Radiograph actually with improving infiltrates, no evidence of pneumothorax. Later in the afternoon, symptoms had improved. 09/17-Still on 6-7 lpm of oxygen. Right scapula pain improved. Dyspnea stable, no sputum production. WBC down to 14K from 18K. Given persistent hypoxema with generally clear lung exam and clinical improvement, CTA obtained (note: iodine allergy is topical-dermatitis, not to IV contrast). Ground glass opacities appear worsening. Have asked Dr. Desouza to see for pulmonary. 09/18-Oxygen requirements bit better, down to 4-5 L of oxygen. Still with intermittent right scapula pain. No sputum production. Collagen-vascular labs sent, are pending. White count up to 19,000. 09/19-on 4.5 L of oxygen today. Continues to slowly improve. White count has declined. No productive sputum. Right-sided back pain improved. Discussed with Dr. Desouza, recommended 10 day course of IV antibiotics. Blood culture results, still preliminary, but in one set showing micrococcus and corynebacterium consistent with contaminant. Other set of blood cultures without growth to 5 days. 09/20 She is seen and examined no acute overnight events. Patient notes that she is emotionally feeling like a wreck. Noted that her dose of Zoloft was not adequate. She was getting 25 mg when she supposed to be on 200 mg. Dosing adjusted. I believe today is day 9 of antibiotics. She is on 3.5 L of oxygen today. She was sitting comfortably in bed able to speak full sentences not in respiratory distress. Labs reviewed WBC has normalized to look lites are stable. Fungal panel is still pending, unlikely that that is etiology given that she has clinically responded to antibiotics. Likely aspiration pneumonitis. Continue to monitor anticipate discharge tomorrow if remains stable 09/21: Pt seen examined, no acute overnight issues, on 3L oxygen via nasal canula, doing much better, and feeling better eager to be discharged today Plan to discharge to SNF for rehab continue levofloxacin for another 4 days follow up with PCP and pulmonology Pt aware that not all autoimmune workup and cultures are back, these will be reviewed by pulmonary clinic on follow up. Discharge diagnosis Multifocal pneumonia. : s/p 10 days with vanco/ zosyn and levoflox. continue levofloxacin for another 4 days after discharge. Pt has autoimmune and fungal panels still pending. plan to follow up with pulmonary. Acute on chronic hypoxic respiratory failure secondary to above. improving gradually, ion 3L oxygen at discharge. Wean off as tolerated. Sepsis secondary to pneumonia. resolved COPD with exacerbation from pneumonia. resolved Gastroesophageal reflux disease. Continue PPI. Anxiety disorder. Stable. Pcontinue sertraline 200mg Pt also on methylphenidiate to continue. Chronic pain with pain pump in place and DJD. Query whether this may have contributed to posterior chest pain on Sunday. Plan: Continue pain pump, acetaminophen with hydrocodone. Discharge diagnosis: Multifocal PNA, COPD exacerbation, Severe sepsis. Acute on chr resp failure - Time Spent with Patient Total time spent providing and/or coordinating discharge services: Greater than 30 minutes Medical - DS: Exam - Constitutional Vitals: Vital Signs Temp Pulse Pulse Resp BP BP Pulse Ox 09/21/17 08:00 98.0 F 64 14 125/82 94 09/21/17 03:24 97.5 F 66 18 117/79 91 09/20/17 23:27 96.7 F L 64 17 112/65 95 09/20/17 21:06 72 16 98 09/20/17 19:45 98.2 F 82 17 109/60 93 09/20/17 16:00 96.9 F L 89 16 120/71 91 09/20/17 11:46 98.2 F 86 14 103/63 95 Intake and Output 09/20/17 09/21/17 09/21/17 21:59 05:59 13:59 Intake Total 100 / 100 850 / 850 50 / 50 Output Total 1000 / 1000 1100 / 1100 Balance 100 / 100 -150 / -150 -1050 / -1050 Intake: IV 100 / 100 50 / 50 50 / 50 Zosyn 3.375 gm In Dextrose 5% 100 / 100 50 / 50 50 / 50 in Water 50 ml @ 100 mls/hr IV Q6H [facility] Rx#:[id number] Oral 800 / 800 Output: Urine Catheter Amount 500 / 500 Void Amount 1000 / 1000 600 / 600 Other: Meal Dinner Percent of Meal Consumed 100% Feeding Ability Independent Stool Size Large Stool Color Brown Stool Consistency Loose # Voids 3 1 1 Weight 145 lb 3.2 oz Additional comments: Constitutional; Afebrile, cooperative, alert, not in distress. Eyes- No icterus, , No periorbital swelling Ears- Ext ear normal, hearing normal to conversation. Neck- Midline trachea, supple Respiratory system: Air Entry equal on both sides, No crackles or wheezing, no rhonchi. CVS- Rate rhythm regular, S1,S2 heard, no gallop, no rub. Abdomen- Soft nontender abdomen, no organomegaly, no tenderness, no guarding or rigidity, [employer]- AOOx3, moving all extremities, no gross focal deficit noted. Medical - DS: Data Procedures and tests throughout hospitalization: chest x ray IMPRESSION: Moderate mixed interstitial/alveolar infiltrates in the right upper and both lower lobes chest CT MPRESSION: 1. Diffuse alveolar (groundglass infiltrates) throughout both lungs with peripheral sparing and thickening of the interlobular septa. In addition, there are scattered small nodules less than 10 mm throughout both lungs. In the acute setting, diffuse alveolar infiltrates can indicate ARDS, opportunistic infection (PCP, fungus, mycoplasma, viral ) pulmonary hemorrhage, hypersensitivity pneumonitis, acute eosinophilic pneumonia or drug toxicity. Multiple small nodules may indicate either granulomas or metastases from an unknown primary carcinoma Echoi normal lv size, thickness and function CT Angio lung IMPRESSION: Worsening groundglass infiltrates with some underlying nodularity of the lung parenchyma bilaterally. This is nonspecific and could be due to bronchiolitis obliterans organizing pneumonia, infection, collagen vascular disease, hypersensitivity reaction or several other uncommon entities. Lung biopsy may be required for definitive diagnosis. Labs on day of discharge: Labs from last 24 hours 09/21/17 09/21/17 09/20/17 04:55 04:55 08:10 WBC 8.4 RBC 4.29 Hgb 12.9 Hct 40.2 MCV 93.7 MCH 30.1 MCHC 32.1 RDW 14.5 Plt Count 645 H MPV 6.7 L Gran % 62.4 Lymph % (Auto) 23.5 Hettinger % (Auto) 9.6 Eos % (Auto) 4.0 Baso % (Auto) 0.5 Gran # 5.2 Lymph # (Auto) 2.0 Hettinger # (Auto) 0.8 Eos # (Auto) 0.3 Baso # (Auto) 0 ESR 58 H Sodium 139 Potassium 3.7 Chloride 100 Carbon Dioxide 26 Anion Gap 13.0 BUN 6 L Creatinine 0.6 GFR Calculation 96 Glucose 84 Uric Acid 2.9 Calcium 8.8 Phosphorus 4.3 Magnesium 2.0 Total Bilirubin 0.2 Direct Bilirubin < 0.2 GGT 37 H AST 48 H ALT 34 Alkaline Phosphatase 54 Lactate Dehydrogenase 292 H Total Protein 6.2 Albumin 2.8 L Globulin 3.4 Albumin/Globulin Ratio 0.8 L Triglycerides 86 Complement C3 155.9 Complement C4 20.6 Medical - DS: A/P - Patient/Caregiver Discharge Instructions Activity: as per physical therapy, increase activity as tolerated, wear oxygen at all times (wean off oxygen as tolerated. goal oxygen sat > 90%) Diet: Regular Diet Additional Instructions: The patient is on 3 L of oxygen via nasal cannula. Wean off oxygen as tolerated. Oxygen saturation goal is more than 90%. Please follow-up in pulmonary clinic in 1-[address] Desouza Please follow-up with PCP in 1-2 weeks. Take levofloxacin for 4 more days and 50 mg once a day. No other changes in her home medications have been done please take your medications as prescribed by her previous provider. Go to the emergency room if worsening shortness of breath fever chest pain or any other acute concerning symptom. Prescriptions: HYDROcodone/ACETAMINOPHEN [Hydrocodon-Acetaminophn 10-325] 1 each PO Q6HP PRN # 40 tab PRN Reason: Pain Levofloxacin 750 mg PO DAILY #4 tab Methylphenidate HCl [Quillichew ER] 30 mg PO DAILY #30 tab.cbp24h Other Amb Orders: OT Discharge Order Location: Determined By Patient Physical Therapy at Discharge - General Location: Determined By Patient ST Discharge Order Location: Determined By Patient - Follow up Plan Follow up with: Israel Desouza MD [Physician] - (Please call/schedule follow up appointment to be seen in 1-2 weeks.) Earnestine Virk ARNP [Primary Care Provider] - 09/18/17 2:00 pm (Please call and rescheduled this hospital follow up to be seen in 1-2 weeks.) Disposition: Xfer SNF Prognosis: Fair Rehab Potential: Fair I certify that the patient requires SNF services: Yes Overall status at discharge: patient is progressing back to baseline Medical - DS: Qual - VTE Deep Vein Thrombosis/Pulmonary Embolism Present on Admission: No
[2017-09-21 10:19] LABS: Cyclic Citrullinated Peptide < 16 UNITS
[2017-09-21] MEDS: LEVOFLOXACIN 750 MG/150 ML BAG IV SCH (10:22)
[2017-09-21] MEDS ORDERED: LEVOFLOXACIN 750 MG TABLET PO ONE (11:04)
[2017-09-24 11:52] LABS: ANCA SCREEN NEGATIVE (NEGATIVE)
[2017-09-25 09:29] LABS: Histoplasma Mycelial AB <1:8 (<1:8)
== END 2017-09-21 11:25 | DRG 871 ==
LOC: ED 15:19 → MEDSUR 18:20 → ICU 09-12 12:31 → MEDSUR 09-14 13:24
PROVIDERS: ADMIT Internal Medicine; ATTEND Internal Medicine